=== PATIENT | female | born 1995 | race Caucasian/White ===

== ENCOUNTER 2017-11-01 00:36 | Inpatient (IN) | payer OTHER ==
[2017-11-01] MEDS ORDERED: Methylergonovine 0.2 MG/1 ML Amp IM PRN (00:52)
[2017-11-01] MEDS ORDERED: Tranexamic Acid 1,000 MG in Sodium Chloride 0.9% 100 ML IV PRN (00:52)
[2017-11-01] MEDS ORDERED: Nalbuphine 10 MG/1 ML Vial IVPUSH PRN (00:52)
[2017-11-01] MEDS ORDERED: Water For Irrigation,Sterile 1,000 ML Container IRR PRN (00:52)
[2017-11-01] MEDS ORDERED: Sodium Chloride 0.9% 10 ML Syringe FLUSH PRN (00:52)
[2017-11-01] MEDS ORDERED: Misoprostol 200 MCG Tab PO PRN (00:52)
[2017-11-01] MEDS ORDERED: Butorphanol 1 MG/ML SDV IVPUSH PRN (00:52)
[2017-11-01] MEDS ORDERED: Carboprost Tromethamine 250 MCG/1 ML Amp IM PRN (00:52)
[2017-11-01] MEDS ORDERED: Lidocaine 1% 50 ML MDV INJECT PRN (00:52)
[2017-11-01] MEDS ORDERED: Sodium Chloride 0.9% 2.5 ML Syringe FLUSH PRN (00:52)
[2017-11-01] MEDS ORDERED: Misoprostol 25 MCG (1/4 of 100 MCG) Tab VAG PRN (00:55)
[2017-11-01] MEDS ORDERED: Terbutaline 1 MG/ML SDV SUBCUT PRN (00:55)
[2017-11-01] MEDS ORDERED: Oxytocin/0.9 % Sodium Chloride 30 UNIT/500 ML BAG IV SCH ×2 (01:00)
[2017-11-01] MEDS: Misoprostol 25 MCG (1/4 of 100 MCG) Tab VAG PRN ×2 (01:42→09:03)
[2017-11-01] MEDS: Misoprostol 50 MCG (1/2 of 100 MCG) Tab PO SCH ×2 (01:43→09:02)
--- NOTE | 2017-11-01 07:54 | PCM.LDHP ---
L&D History of Present Illness - General Date of Service: 11/01/17 Admit Problem/Dx: Patient Status Order with Admit Dx/Problem 11/01/17 00:53 Patient Status [ADT] Routine Admission Diagnosis/Problem Admission Diagnosis/Problem - planned 11/01/17 07:48 22yo EDC 10/31/2017 40 1/7wks IOL for term, O+, R-equivocal, GBS neg. Source of Information: Patient History Limitations: Reports: No Limitations - History of Present Illness Improves with: Reports: None Worsens with: Reports: None Associated Symptoms: Reports: N - Related Data Allergies/Adverse Reactions: Allergies Allergy/AdvReac Type Severity Reaction Status Date / Time No Known Allergies Allergy Verified 11/01/17 00:48 Home Medications: Home Meds [id number]/Iron Fumarate/FA/DSS [ 19 Tablet] 1 cap PO DAILY 11/01/17 [ History] Past Medical History [employer] History: Reports: - Past Surgical History GI Surgical History: Reports: Appendectomy Other GI Surgeries/Procedures: 2010 Social & Family History - Family History Family Medical History: Noncontributory Oncologic: Reports: Ovarian, Renal - Tobacco Use Smoking Status *Q: Never Smoker Second Hand Smoke Exposure: No - Caffeine Use Caffeine Use: Reports: Coffee, Tea - Alcohol Use Days Per Week of Alcohol Use: 0 - Recreational Drug Use Recreational Drug Use: No Drug Use in Last 12 Months: Yes Recreational Drug Type: Reports: Marijuana/Hashish H&P Review of Systems - Review of Systems: Review Of Systems: See Below General: Reports: No Symptoms HEENT: Reports: No Symptoms Pulmonary: Reports: No Symptoms Cardiovascular: Reports: No Symptoms Gastrointestinal: Reports: No Symptoms Genitourinary: Reports: No Symptoms Musculoskeletal: Reports: No Symptoms Skin: Reports: No Symptoms Psychiatric: Reports: No Symptoms Neurological: Reports: No Symptoms Hematologic/Lymphatic: Reports: No Symptoms Immunologic: Reports: No Symptoms L&D Exam - Exam Exam: See Below - Vital Signs Weight: 109.769 kg - OB Specific Contraction Intensity: Mild Movement: Active Heart Tones: Present Heart Tones per Min: 130 Heart Rate (FHR) Variability: Moderate (6-25 bmp) Presentation: Vertex Estimated Weight: 3200 - Keys Score Keys Score Cervix Position: Anterior Keys Score Consistency: Soft Keys Score Effacement: 51-70% Keys Score Dilation: 1-2 cm Keys Score 's Station: -2 Keys Score Total: 8 - Exam General: Alert, Oriented, Cooperative HEENT: Hearing Intact Lungs: Clear to Auscultation, Normal Respiratory Effort Cardiovascular: Regular Rate, Regular Rhythm, Normal S1, Normal S2 GI/Abdominal Exam: Soft, Non-Tender Rectal Exam: Deferred Genitourinary: Cervical dilitation Back Exam: Normal Inspection, Full Range of Motion Extremities: Normal Inspection, Normal Range of Motion, Non-Tender, No Pedal Edema, Normal Capillary Refill Skin: Warm, Dry, Intact Neurological: Cranial Nerves Intact, Reflexes Equal Bilateral, Strength Equal Bilateral, Normal Gait, Normal Speech, Normal Tone, Sensation Intact Psychiatric: Alert, Normal Affect, Normal Mood - Patient Data Lab Results Last 24 hrs: Laboratory Results - last 24 hr 11/01/17 11/01/17 Range/Units 01:20 01:20 WBC 9.07 (4.0-11.0) K/uL RBC 4.02 L (4.30-5.90) M/uL Hgb 10.5 L (12.0-16.0) g/dL Hct 31.9 L (36.0-46.0) % MCV 79.4 L (80.0-98.0) fL MCH 26.1 L (27.0-32.0) pg MCHC 32.9 (31.0-37.0) g/dL RDW Std Deviation 44.1 (28.0-62.0) fl RDW Coeff of Fina 15 (11.0-15.0) % Plt Count 292 (150-400) K/uL MPV 10.40 (7.40-12.00) fL Nucleated RBC % 0.0 /100WBC Nucleated RBCs # 0 K/uL Blood Type O POSITIVE Antibody Screen NEGATIVE Result Diagrams: 11/01/17 01:20 - Problem List (1) Supervision of normal IUP (intrauterine ) in primigravida SNOMED Code(s): 77203984, 003545769, 023922280, 305513879 ICD Code: Z34.00 - ENCNTR FOR SUPRVSN OF NORMAL FIRST , UNSP TRIMESTER Status: Acute Priority: High Current Visit: Yes Qualifiers: Trimester: third trimester Qualified Code(s): Z34.03 - Encounter for supervision of normal first , third trimester Problem List Initiated/Reviewed/Updated: Yes Orders Last 24hrs: Active Orders 24 hr Category Date Time Status Patient Status [ADT] Routine ADT 11/01/17 00:53 Active Bedrest Bathroom Privileges [RC] ASDIRECTED Care 11/01/17 00:56 Active Communication Order [RC] ASDIRECTED Care 11/01/17 00:56 Active Communication Order [RC] ASDIRECTED Care 11/01/17 00:56 Active Communication Order [RC] ASDIRECTED Care 11/01/17 00:56 Active Heart Tones [RC] CONTINUOUS Care 11/01/17 00:53 Active Non Stress Test [RC] PER UNIT ROUTINE Care 11/01/17 00:53 Active May Shower [RC] ASDIRECTED Care 11/01/17 00:53 Active Notify Provider [RC] PRN Care 11/01/17 00:53 Active Notify Provider [RC] PRN Care 11/01/17 00:56 Active Notify Provider [RC] PRN Care 11/01/17 00:56 Active Notify Provider [RC] STAT Care 11/01/17 00:56 Active Oxygen Therapy [RC] ASDIRECTED Care 11/01/17 00:56 Active Up ad Karin [RC] ASDIRECTED Care 11/01/17 00:53 Active Vaginal Exam [RC] PRN Care 11/01/17 00:53 Active Vital Signs [RC] PER UNIT ROUTINE Care 11/01/17 00:53 Active Regular Diet [DIET] Diet 11/01/17 Breakfast Active Butorphanol [Stadol] Med 11/01/17 00:52 Active 1 mg IVPUSH Q1H PRN Carboprost Tromethamine [Hemabate DS] Med 11/01/17 00:52 Active 250 mcg IM ASDIRECTED PRN Lactated Ringers [Ringers, Lactated] 1,000 ml Med 11/01/17 01:00 Active IV ASDIRECTED Lidocaine 1% [Xylocaine 1%] Med 11/01/17 00:52 Active 50 ml INJECT ONETIME PRN Methylergonovine [Methergine] Med 11/01/17 00:52 Active 0.2 mg IM ASDIRECTED PRN Nalbuphine [Nubain] Med 11/01/17 00:52 Active 10 mg IVPUSH Q1H PRN Oxytocin/0.9 % Sodium Chloride [Oxytocin 30 Unit/500 ML Med 11/01/17 01:00 Active -NS] 30 unit in 500 ml IV TITRATE Oxytocin/0.9 % Sodium Chloride [Oxytocin 30 Unit/500 ML Med 11/01/17 01:00 Active -NS] 30 unit in 500 ml IV TITRATE Sodium Chloride 0.9% [Saline Flush] Med 11/01/17 00:52 Active 10 ml FLUSH ASDIRECTED PRN Sodium Chloride 0.9% [Saline Flush] Med 11/01/17 00:52 Active 2.5 ml FLUSH ASDIRECTED PRN Terbutaline [Brethine] Med 11/01/17 00:55 Active 0.25 mg SUBCUT ASDIRECTED PRN Tranexamic Acid [Cyklokapron] 1,000 mg Med 11/01/17 00:52 Active Sodium Chloride 0.9% [Normal Saline] 100 ml IV ONETIME Water For Irrigation,Sterile [Sterile Water for Med 11/01/17 00:52 Active Irrigation] 1,000 ml IRR ASDIRECTED PRN miSOPROStol [Cytotec] Med 11/01/17 00:52 Active 200 mcg PO ONETIME PRN miSOPROStol [Cytotec] Med 11/01/17 01:30 Active 25 mcg PO Q4H miSOPROStol [Cytotec] Med 11/01/17 00:55 Active 25 mcg VAG ONETIME PRN miSOPROStol [Cytotec] Med 11/01/17 00:55 Active 25 mcg VAG Q4H PRN Scalp Electrode [WOMSER] Per Unit Routine Oth 11/01/17 00:53 Ordered Medication Administration Instruction [OM.PC] Q3H Oth 11/01/17 01:00 Ordered Peripheral IV Insertion Adult [OM.PC] Routine Oth 11/01/17 00:53 Ordered Resuscitation Status Routine Resus Stat 11/01/17 00:52 Ordered Medication Orders Butorphanol Tartrate (Stadol) 1 mg IVPUSH Q1H PRN PRN Reason: Pain Carboprost Tromethamine (Hemabate Ds) 250 mcg IM ASDIRECTED PRN PRN Reason: Post Hemorrhage Lactated Ringer's (Ringers, Lactated) 1,000 mls @ 150 mls/hr IV ASDIRECTED NANY Oxytocin/Sodium Chloride (Oxytocin 30 Unit/500 Ml-Ns) 30 unit in 500 mls @ 500 mls/hr IV TITRATE [facility] Tranexamic Acid 1,000 mg/ (Sodium Chloride) 110 mls @ 660 mls/hr IV ONETIME PRN PRN Reason: Bleeding Oxytocin/Sodium Chloride (Oxytocin 30 Unit/500 Ml-Ns) 30 unit in 500 mls @ 2 mls/hr IV TITRATE [facility]; Protocol Lidocaine HCl (Xylocaine 1%) 50 ml INJECT ONETIME PRN PRN Reason: Laceration repair Methylergonovine Maleate (Methergine) 0.2 mg IM ASDIRECTED PRN PRN Reason: Post Hemorrhage Misoprostol (Cytotec) 200 mcg PO ONETIME PRN PRN Reason: Post Hemorrhage Misoprostol (Cytotec) 25 mcg VAG ONETIME PRN PRN Reason: Cervical Ripening Misoprostol (Cytotec) 25 mcg VAG Q4H PRN PRN Reason: Cervical Ripening Last Admin: 11/01/17 01:42 Dose: 25 mcg Misoprostol (Cytotec) 25 mcg PO Q4H NANY Last Admin: 11/01/17 01:43 Dose: 25 mcg Nalbuphine HCl (Nubain) 10 mg IVPUSH Q1H PRN PRN Reason: Pain (severe 7-10) Sodium Chloride (Saline Flush) 10 ml FLUSH ASDIRECTED PRN PRN Reason: Keep Vein Open Sodium Chloride (Saline Flush) 2.5 ml FLUSH ASDIRECTED PRN PRN Reason: Keep Vein Open Sterile Water (Sterile Water For Irrigation) 1,000 ml IRR ASDIRECTED PRN PRN Reason: delivery Terbutaline Sulfate (Brethine) 0.25 mg SUBCUT ASDIRECTED PRN PRN Reason: Tacysystole Assessment/Plan Comment:: IOL A: 22yo EDC 10/31/2017 40 1/7wks IOL for term, O+, R-equivocal, GBS neg. P: Admit, cytotec to pitocin, GBS neg, pain med-epidural prn, anticipate , Dr Tijerina updated
[2017-11-01] MEDS: Lactated Ringers 1,000 ML IV SCH ×3 (09:15→18:27)
--- NOTE | 2017-11-01 13:04 | PCM.PREANE ---
Preanesthetic Assessment - Anesthesia/Transfusion/Family Hx Anesthesia History: No Prior Anesthesia Family History of Anesthesia Reaction: No Transfusion History: No Prior Transfusion(s) - Review of Systems General: No Symptoms Pulmonary: No Symptoms Cardiovascular: No Symptoms Gastrointestinal: No Symptoms Neurological: No Symptoms Other: Reports: None - Physical Assessment Height: 5 ft 3 in Weight: 109.769 kg ASA Class: 2 Mental Status: Alert & Oriented x3 Airway Class: Mallampati = 2 Dentition: Reports: Normal Dentition Thyro-Mental Finger Breadths: 3 Mouth Opening Finger Breadths: 3 ROM/Head Extension: Full Lungs: Clear to Auscultation, Normal Respiratory Effort Cardiovascular: Regular Rate, Regular Rhythm - Lab Values: Laboratory Last Values WBC 9.07 K/uL (4.0-11.0) 11/01/17 01:20 RBC 4.02 M/uL (4.30-5.90) L 11/01/17 01:20 Hgb 10.5 g/dL (12.0-16.0) L 11/01/17 01:20 Hct 31.9 % (36.0-46.0) L 11/01/17 01:20 MCV 79.4 fL (80.0-98.0) L 11/01/17 01:20 MCH 26.1 pg (27.0-32.0) L 11/01/17 01:20 MCHC 32.9 g/dL (31.0-37.0) 11/01/17 01:20 RDW Std Deviation 44.1 fl (28.0-62.0) 11/01/17 01:20 RDW Coeff of Fina 15 % (11.0-15.0) 11/01/17 01:20 Plt Count 292 K/uL (150-400) 11/01/17 01:20 MPV 10.40 fL (7.40-12.00) 11/01/17 01:20 Nucleated RBC % 0.0 /100WBC 11/01/17 01:20 Nucleated RBCs # 0 K/uL 11/01/17 01:20 Blood Type O POSITIVE 11/01/17 01:20 Antibody Screen NEGATIVE 11/01/17 01:20 - Allergies Allergies/Adverse Reactions: Allergies Allergy/AdvReac Type Severity Reaction Status Date / Time No Known Allergies Allergy Verified 11/01/17 00:48 - Acknowledgements Anesthesia Type Planned: Epidural Pt an Appropriate Candidate for the Planned Anesthesia: Yes Alternatives and Risks of Anesthesia Discussed w Pt/Guardian: Yes Pt/Guardian Understands and Agrees with Anesthesia Plan: Yes PreAnesthesia Questionnaire HEENT History: Reports: None Cardiovascular History: Reports: None Respiratory History: Reports: None Gastrointestinal History: Reports: GERD Genitourinary History: Reports: None SOAKER MEAT History: Reports: : 1 Para: 0 LMP (Approximate): Musculoskeletal History: Reports: None Neurological History: Reports: None Psychiatric History: Reports: None Endocrine/Metabolic History: Reports: Obesity/BMI 30+ Hematologic History: Reports: Anemia Immunologic History: Reports: None Oncologic (Cancer) History: Reports: None Dermatologic History: Reports: None - Past Surgical History GI Surgical History: Reports: Appendectomy Other GI Surgeries/Procedures: 2010 - SUBSTANCE USE Smoking Status *Q: Never Smoker Second Hand Smoke Exposure: No Days Per Week of Alcohol Use: 0 Recreational Drug Use History: No Recreational Drug Type: Reports: Marijuana/Hashish - HOME MEDS Home Medications: Home Meds [id number]/Iron Fumarate/FA/DSS [ 19 Tablet] 1 cap PO DAILY 11/01/17 [ History] - CURRENT (IN HOUSE) MEDS Current Meds: Current Medications Butorphanol Tartrate (Stadol) 1 mg IVPUSH Q1H PRN PRN Reason: Pain Carboprost Tromethamine (Hemabate Ds) 250 mcg IM ASDIRECTED PRN PRN Reason: Post Hemorrhage Lactated Ringer's (Ringers, Lactated) 1,000 mls @ 150 mls/hr IV ASDIRECTED NANY Last Admin: 11/01/17 09:15 Dose: 150 mls/hr Oxytocin/Sodium Chloride (Oxytocin 30 Unit/500 Ml-Ns) 30 unit in 500 mls @ 500 mls/hr IV TITRATE NANY Tranexamic Acid 1,000 mg/ (Sodium Chloride) 110 mls @ 660 mls/hr IV ONETIME PRN PRN Reason: Bleeding Oxytocin/Sodium Chloride (Oxytocin 30 Unit/500 Ml-Ns) 30 unit in 500 mls @ 2 mls/hr IV TITRATE NANY; Protocol Lidocaine HCl (Xylocaine 1%) 50 ml INJECT ONETIME PRN PRN Reason: Laceration repair Methylergonovine Maleate (Methergine) 0.2 mg IM ASDIRECTED PRN PRN Reason: Post Hemorrhage Misoprostol (Cytotec) 200 mcg PO ONETIME PRN PRN Reason: Post Hemorrhage Misoprostol (Cytotec) 25 mcg VAG ONETIME PRN PRN Reason: Cervical Ripening Misoprostol (Cytotec) 25 mcg VAG Q4H PRN PRN Reason: Cervical Ripening Last Admin: 11/01/17 09:03 Dose: 25 mcg Misoprostol (Cytotec) 25 mcg PO Q4H NANY Last Admin: 11/01/17 09:02 Dose: 25 mcg Nalbuphine HCl (Nubain) 10 mg IVPUSH Q1H PRN PRN Reason: Pain (severe 7-10) Last Admin: 11/01/17 11:13 Dose: 10 mg Sodium Chloride (Saline Flush) 10 ml FLUSH ASDIRECTED PRN PRN Reason: Keep Vein Open Sodium Chloride (Saline Flush) 2.5 ml FLUSH ASDIRECTED PRN PRN Reason: Keep Vein Open Sterile Water (Sterile Water For Irrigation) 1,000 ml IRR ASDIRECTED PRN PRN Reason: delivery Terbutaline Sulfate (Brethine) 0.25 mg SUBCUT ASDIRECTED PRN PRN Reason: Tacysystole
[2017-11-01] MEDS ORDERED: Bupivacaine 0.5% 10 ML SDV ONE (20:52)
[2017-11-01] MEDS ORDERED: Acetaminophen 500 MG Tab PO PRN ×2 (23:01)
[2017-11-01] MEDS ORDERED: oxyCODONE 5 MG Tab PO PRN (23:01)
[2017-11-01] MEDS ORDERED: Docusate Sodium 100 MG Cap PO PRN (23:01)
[2017-11-01] MEDS ORDERED: Bisacodyl 10 MG Supp RECTAL PRN (23:01)
[2017-11-01] MEDS ORDERED: Ibuprofen 400 MG Tab PO PRN (23:01)
[2017-11-01] MEDS ORDERED: Witch Hazel Medicated Pads 40/Jar TOP PRN (23:01)
[2017-11-01] MEDS ORDERED: Lanolin 100% Cream 7 GM Tube TOP PRN (23:01)
[2017-11-01] MEDS ORDERED: Benzocaine/Menthol 20%-0.5% Spray 78 GM Cannister TOP PRN (23:01)
--- NOTE | 2017-11-01 23:06 | PCM.DEL ---
L & D Note - General Info Date of Service: 11/01/17 Mother's Due Date: 10/31/17 - Delivery Note Labor: Induced by Oxytocin Cervical Ripening Method: Misoprostil Delivery Outcome: Livebirth Delivery Method: Spontaneous Vaginal Delivery-Single Infant Delivery Mode: Spontaneous Presentation: Vertex Nuchal Cord: None Anesthesia Type: None Amniotic Fluid Description: Clear Episiotomy Type: None Laceration: 1st Degree, Perineal Suture type: Vicryl Suture size: 3-0 Placenta: Intact, Spontaneous Cord: 3 Vessels Estimated Blood Loss: 150 Resuscitation Needed: No Score 1 min: 9 Score 5 min: 8 Second Stage Interventions: Reports: Pushing, Pulls Own Legs Back Induction Criteria - Keys Score Keys Score Dilation: 1-2 cm Keys Score Effacement: 40-50% Keys Score 's Station: -2 Keys Score Consistency: Medium Keys Score Cervix Position: Posterior Keys Score Total: 4 Keys Score Presenting Part: Reports: Cephalic - Induction Gestational Age >/= 39 wks: Yes Estimated Pelvis: Reports: Adequate Reassuring Monitoring Strip: Yes Absence of Tachy Systole: Yes - General Info Date of Service: 11/01/17 Admission Dx/Problem (Free Text): Patient Status Order with Admit Dx/Problem 11/01/17 00:53 Patient Status [ADT] Routine Admission Diagnosis/Problem Admission Diagnosis/Problem - planned 11/01/17 07:48 22yo EDC 10/31/2017 40 1/7wks IOL for term, O+, R-equivocal, GBS neg. Functional Status: Reports: Pain Controlled - Review of Systems General: Reports: No Symptoms HEENT: Reports: No Symptoms Pulmonary: Reports: No Symptoms Cardiovascular: Reports: No Symptoms Gastrointestinal: Reports: No Symptoms Genitourinary: Reports: No Symptoms Musculoskeletal: Reports: No Symptoms Skin: Reports: No Symptoms Neurological: Reports: No Symptoms Psychiatric: Reports: No Symptoms - Patient Data Weight - Most Recent: 109.769 kg Lab Results Last 24 Hours: Laboratory Results - last 24 hr 11/01/17 11/01/17 Range/Units 01:20 01:20 WBC 9.07 (4.0-11.0) K/uL RBC 4.02 L (4.30-5.90) M/uL Hgb 10.5 L (12.0-16.0) g/dL Hct 31.9 L (36.0-46.0) % MCV 79.4 L (80.0-98.0) fL MCH 26.1 L (27.0-32.0) pg MCHC 32.9 (31.0-37.0) g/dL RDW Std Deviation 44.1 (28.0-62.0) fl RDW Coeff of Fina 15 (11.0-15.0) % Plt Count 292 (150-400) K/uL MPV 10.40 (7.40-12.00) fL Nucleated RBC % 0.0 /100WBC Nucleated RBCs # 0 K/uL Blood Type O POSITIVE Antibody Screen NEGATIVE Med Orders - Current: Current Medications Discontinued Medications Bupivacaine HCl (Sensorcaine-Mpf 0.5%) Confirm Administered Dose 10 ml .ROUTE .STK-MED ONE Stop: 11/01/17 20:53 Butorphanol Tartrate (Stadol) 1 mg IVPUSH Q1H PRN PRN Reason: Pain Carboprost Tromethamine (Hemabate Ds) 250 mcg IM ASDIRECTED PRN PRN Reason: Post Hemorrhage Lactated Ringer's (Ringers, Lactated) 1,000 mls @ 150 mls/hr IV ASDIRECTED NANY Last Admin: 11/01/17 18:27 Dose: 150 mls/hr Oxytocin/Sodium Chloride (Oxytocin 30 Unit/500 Ml-Ns) 30 unit in 500 mls @ 500 mls/hr IV TITRATE NANY Tranexamic Acid 1,000 mg/ (Sodium Chloride) 110 mls @ 660 mls/hr IV ONETIME PRN PRN Reason: Bleeding Oxytocin/Sodium Chloride (Oxytocin 30 Unit/500 Ml-Ns) 30 unit in 500 mls @ 2 mls/hr IV TITRATE NANY; Protocol Last Titration: 11/01/17 19:23 Dose: 12 munits/min, 12 mls/hr Fentanyl/Bupivacaine HCl (Nxczztio-Gabih-Gk 2 Mcg/Ml-0.125%) Confirm Administered Dose 100 mls @ as directed EP .STK-MED ONE Stop: 11/01/17 13:06 Fentanyl/Bupivacaine HCl (Mhgiilwi-Qydna-Yl 2 Mcg/Ml-0.125%) Confirm Administered Dose 100 mls @ as directed EP .STK-MED ONE Stop: 11/01/17 20:57 Lidocaine HCl (Xylocaine 1%) 50 ml INJECT ONETIME PRN PRN Reason: Laceration repair Methylergonovine Maleate (Methergine) 0.2 mg IM ASDIRECTED PRN PRN Reason: Post Hemorrhage Misoprostol (Cytotec) 200 mcg PO ONETIME PRN PRN Reason: Post Hemorrhage Misoprostol (Cytotec) 25 mcg VAG ONETIME PRN PRN Reason: Cervical Ripening Misoprostol (Cytotec) 25 mcg VAG Q4H PRN PRN Reason: Cervical Ripening Last Admin: 11/01/17 09:03 Dose: 25 mcg Misoprostol (Cytotec) 25 mcg PO Q4H NANY Last Admin: 11/01/17 09:02 Dose: 25 mcg Nalbuphine HCl (Nubain) 10 mg IVPUSH Q1H PRN PRN Reason: Pain (severe 7-10) Last Admin: 11/01/17 11:13 Dose: 10 mg Sodium Chloride (Saline Flush) 10 ml FLUSH ASDIRECTED PRN PRN Reason: Keep Vein Open Sodium Chloride (Saline Flush) 2.5 ml FLUSH ASDIRECTED PRN PRN Reason: Keep Vein Open Sterile Water (Sterile Water For Irrigation) 1,000 ml IRR ASDIRECTED PRN PRN Reason: delivery Terbutaline Sulfate (Brethine) 0.25 mg SUBCUT ASDIRECTED PRN PRN Reason: Tacysystole - Exam General: Alert, Oriented, Cooperative, No Acute Distress Lungs: Normal Respiratory Effort GI/Abdominal Exam: Soft, Non-Tender (Female) Exam: Normal External Exam, Normal Bimanual Exam, Vaginal Bleeding Back Exam: Normal Inspection Extremities: Normal Inspection, Normal Range of Motion, Non-Tender, No Pedal Edema, Normal Capillary Refill Skin: Warm, Dry, Intact Wound/Incisions: Healing Well Neurological: No New Focal Deficit, Normal Speech, Normal Tone Psy/Mental Status: Alert, Normal Affect, Normal Mood - Problem List & Annotations (1) Supervision of normal IUP (intrauterine ) in primigravida SNOMED Code(s): 23145469, 266354558, 709324067, 537063553 Code(s): Z34.00 - ENCNTR FOR SUPRVSN OF NORMAL FIRST , UNSP TRIMESTER Status: Acute Priority: High Current Visit: Yes Qualifiers: Trimester: third trimester Qualified Code(s): Z34.03 - Encounter for supervision of normal first , third trimester (2) (normal spontaneous vaginal delivery) SNOMED Code(s): 94747352 Code(s): O80 - ENCOUNTER FOR FULL-TERM UNCOMPLICATED DELIVERY Status: Acute Priority: High Current Visit: Yes - Problem List Review Problem List Initiated/Reviewed/Updated: Yes - My Orders Last 24 Hours: My Active Orders 11/01/17 23:01 May Shower [RC] ASDIRECTED Up ad Karin [RC] ASDIRECTED Vital Signs [RC] PER UNIT ROUTINE Acetaminophen [Tylenol Extra Strength] 1,000 mg PO Q4H PRN Acetaminophen [Tylenol Extra Strength] 500 mg PO Q4H PRN Benzocaine/Menthol [Dermoplast Pain Relief 20%-0.5% [place]] 78 gm TOP ASDIRECTED PRN Bisacodyl [Dulcolax] 10 mg RECTAL ONETIME PRN Docusate Sodium [Colace] 100 mg PO BID PRN Ibuprofen [Motrin] 400 mg PO Q4H PRN Ibuprofen [Motrin] 800 mg PO Q6H PRN Lanolin [Lansinoh HPA] See Dose Instructions TOP ASDIRECTED PRN [place] [Tucks] 1 pad TOP ASDIRECTED PRN oxyCODONE 5 mg PO Q2H PRN Assess Lochia [WOMSER] Per Unit Routine Assess Uterine Involution [WOMSER] Per Unit Routine Peripheral IV Discontinue [OM.PC] Routine Resuscitation Status Routine 11/01/17 23:02 Patient Status [ADT] Routine 11/02/17 Breakfast Regular Diet [DIET] - Plan Plan:: IOL A: 22yo EDC 10/31/2017 40 1/7wks IOL for term, O+, R-equivocal, GBS neg. P: Admit, cytotec to pitocin, GBS neg, pain med-epidural prn, anticipate , Dr Tijerina updated Delivery A: of viable male, APGARS 8/9, WT : 8lb 2oz, 1st deg lac w/repair, EBL 150cc. Mother and baby bonding well in recovery. P: Routine pp plan of care
[2017-11-02] MEDS: Misoprostol 50 MCG (1/2 of 100 MCG) Tab PO SCH (03:24)
[2017-11-02] MEDS: Ibuprofen 800 MG Tab PO PRN ×2 (09:08→18:05)
--- NOTE | 2017-11-02 09:37 | PCM48HPAN ---
Post Anesthesia Note - EVALUATION WITHIN 48HRS OF ANESTHETIC Vital Signs in Normal Range: Yes Patient Participated in Evaluation: Yes Respiratory Function Stable: Yes Airway Patent: Yes Cardiovascular Function Stable: Yes Hydration Status Stable: Yes Pain Control Satisfactory: Yes Nausea and Vomiting Control Satisfactory: Yes Mental Status Recovered: Yes Resp Rate: 16
--- NOTE | 2017-11-02 10:01 | PCM.PNPP ---
- General Info Date of Service: 11/02/17 Admission Dx/Problem (Free Text): Patient Status Order with Admit Dx/Problem 11/01/17 00:53 Patient Status [ADT] Routine Admission Diagnosis/Problem Admission Diagnosis/Problem - planned 11/01/17 07:48 22yo EDC 10/31/2017 40 1/7wks IOL for term, O+, R-equivocal, GBS neg. Functional Status: Reports: Pain Controlled, Tolerating Diet, Ambulating, Urinating - Review of Systems General: Reports: No Symptoms HEENT: Reports: No Symptoms Pulmonary: Reports: No Symptoms Cardiovascular: Reports: No Symptoms Gastrointestinal: Reports: No Symptoms Genitourinary: Reports: No Symptoms Musculoskeletal: Reports: No Symptoms Skin: Reports: No Symptoms Neurological: Reports: No Symptoms Psychiatric: Reports: No Symptoms - General Info Date of Service: 11/02/17 - Patient Data Vital Signs - Most Recent: Last Vital Signs Temp Pulse 85 11/02/17 04:35 Resp 16 11/02/17 09:37 BP 120/65 11/02/17 04:35 Pulse Ox 98 11/02/17 04:35 Weight - Most Recent: 109.769 kg Med Orders - Current: Current Medications Acetaminophen (Tylenol Extra Strength) 500 mg PO Q4H PRN PRN Reason: Pain Acetaminophen (Tylenol Extra Strength) 1,000 mg PO Q4H PRN PRN Reason: Pain Benzocaine/Menthol (Dermoplast Pain Relief 20%-0.5% [place]) 78 gm TOP ASDIRECTED PRN PRN Reason: Perineal Comfort Measure Last Admin: 11/02/17 01:10 Dose: 1 applic Bisacodyl (Dulcolax) 10 mg RECTAL ONETIME PRN PRN Reason: Constipation Docusate Sodium (Colace) 100 mg PO BID PRN PRN Reason: Constipation Emollient Ointment (Lansinoh Hpa) 0 gm TOP ASDIRECTED PRN PRN Reason: Sore Nipples Last Admin: 11/02/17 01:09 Dose: 1 applic Ibuprofen (Motrin) 400 mg PO Q4H PRN PRN Reason: Pain Ibuprofen (Motrin) 800 mg PO Q6H PRN PRN Reason: Pain Last Admin: 11/02/17 09:08 Dose: 800 mg Oxycodone HCl (Oxycodone) 5 mg PO Q2H PRN PRN Reason: Pain Witch Cielo (Tucks) 1 pad TOP ASDIRECTED PRN PRN Reason: comfort care Last Admin: 11/02/17 01:10 Dose: 1 applic Discontinued Medications Bupivacaine HCl (Sensorcaine-Mpf 0.5%) Confirm Administered Dose 10 ml .ROUTE .STK-MED ONE Stop: 11/01/17 20:53 Last Admin: 11/02/17 03:23 Dose: Not Given Butorphanol Tartrate (Stadol) 1 mg IVPUSH Q1H PRN PRN Reason: Pain Carboprost Tromethamine (Hemabate Ds) 250 mcg IM ASDIRECTED PRN PRN Reason: Post Hemorrhage Lactated Ringer's (Ringers, Lactated) 1,000 mls @ 150 mls/hr IV ASDIRECTED NANY Last Admin: 11/01/17 18:27 Dose: 150 mls/hr Oxytocin/Sodium Chloride (Oxytocin 30 Unit/500 Ml-Ns) 30 unit in 500 mls @ 500 mls/hr IV TITRATE NANY Tranexamic Acid 1,000 mg/ (Sodium Chloride) 110 mls @ 660 mls/hr IV ONETIME PRN PRN Reason: Bleeding Oxytocin/Sodium Chloride (Oxytocin 30 Unit/500 Ml-Ns) 30 unit in 500 mls @ 2 mls/hr IV TITRATE NANY; Protocol Last Titration: 11/01/17 19:23 Dose: 12 munits/min, 12 mls/hr Methylergonovine Maleate (Methergine) 0.2 mg IM ASDIRECTED PRN PRN Reason: Post Hemorrhage Misoprostol (Cytotec) 200 mcg PO ONETIME PRN PRN Reason: Post Hemorrhage Misoprostol (Cytotec) 25 mcg VAG ONETIME PRN PRN Reason: Cervical Ripening Misoprostol (Cytotec) 25 mcg VAG Q4H PRN PRN Reason: Cervical Ripening Last Admin: 11/01/17 09:03 Dose: 25 mcg Misoprostol (Cytotec) 25 mcg PO Q4H NANY Last Admin: 11/02/17 03:24 Dose: Not Given Nalbuphine HCl (Nubain) 10 mg IVPUSH Q1H PRN PRN Reason: Pain (severe 7-10) Last Admin: 09/21/18 11:13 Dose: 10 mg Sodium Chloride (Saline Flush) 10 ml FLUSH ASDIRECTED PRN PRN Reason: Keep Vein Open Sodium Chloride (Saline Flush) 2.5 ml FLUSH ASDIRECTED PRN PRN Reason: Keep Vein Open Sterile Water (Sterile Water For Irrigation) 1,000 ml IRR ASDIRECTED PRN PRN Reason: delivery Terbutaline Sulfate (Brethine) 0.25 mg SUBCUT ASDIRECTED PRN PRN Reason: Tacysystole - Infant Interaction Disposition, : [place] in Room with Family Infant Interaction: Holding Infant Infant Feeding: Breastfed ; Nursed Well, Continues to Breastfeed Support Person: Mother - Recovery Exam Fundal Tone: Firm Fundal Level: 1 Fingerbreadths Below Umbilicus Fundal Placement: Midline Lochia Amount: Small Lochia Color: Rubra/Red Perineum Description: Intact, Minimal Bruising/Swelling Other Perinuem Description: 1 degree laceration Episiotomy/Laceration: Approximated Bladder Status: Voiding - Exam General: Alert, Oriented, Cooperative, No Acute Distress Lungs: Normal Respiratory Effort Extremities: Normal Inspection, Normal Range of Motion, Non-Tender, No Pedal Edema, Normal Capillary Refill Skin: Warm, Dry, Intact Wound/Incisions: Healing Well Neurological: No New Focal Deficit, Normal Gait, Normal Speech, Normal Tone, Strength Equal Bilateral Psy/Mental Status: Alert, Normal Affect, Normal Mood - Problem List & Annotations (1) Supervision of normal IUP (intrauterine ) in primigravida SNOMED Code(s): 72992007, 554883828, 313173646, 602752736 Code(s): Z34.00 - ENCNTR FOR SUPRVSN OF NORMAL FIRST , UNSP TRIMESTER Status: Acute Priority: High Current Visit: Yes Qualifiers: Trimester: third trimester Qualified Code(s): Z34.03 - Encounter for supervision of normal first , third trimester (2) (normal spontaneous vaginal delivery) SNOMED Code(s): 96458120 Code(s): O80 - ENCOUNTER FOR FULL-TERM UNCOMPLICATED DELIVERY Status: Acute Priority: High Current Visit: Yes - Problem List Review Problem List Initiated/Reviewed/Updated: Yes - My Orders Last 24 Hours: My Active Orders 11/01/17 23:01 May Shower [RC] ASDIRECTED Up ad Karin [RC] ASDIRECTED Vital Signs [RC] PER UNIT ROUTINE Acetaminophen [Tylenol Extra Strength] 1,000 mg PO Q4H PRN Acetaminophen [Tylenol Extra Strength] 500 mg PO Q4H PRN Benzocaine/Menthol [Dermoplast Pain Relief 20%-0.5% [place]] 78 gm TOP ASDIRECTED PRN Bisacodyl [Dulcolax] 10 mg RECTAL ONETIME PRN Docusate Sodium [Colace] 100 mg PO BID PRN Ibuprofen [Motrin] 400 mg PO Q4H PRN Ibuprofen [Motrin] 800 mg PO Q6H PRN Lanolin [Lansinoh HPA] See Dose Instructions TOP ASDIRECTED PRN Witch Cielo [Tucks] 1 pad TOP ASDIRECTED PRN oxyCODONE 5 mg PO Q2H PRN Assess Lochia [WOMSER] Per Unit Routine Assess Uterine Involution [WOMSER] Per Unit Routine Peripheral IV Discontinue [OM.PC] Routine Resuscitation Status Routine 11/01/17 23:02 Patient Status [ADT] Routine 11/02/17 Breakfast Regular Diet [DIET] - Plan Plan:: IOL A: 22yo EDC 10/31/2017 40 1/7wks IOL for term, O+, R-equivocal, GBS neg. P: Admit, cytotec to pitocin, GBS neg, pain med-epidural prn, anticipate , Dr Tijerina updated Delivery A: of viable male, APGARS 8/9, WT : 8lb 2oz, 1st deg lac w/repair, EBL 150cc. Mother and baby bonding well in recovery. P: Routine pp plan of care PPD#1 A: VSS, AF, FF -2BU, lochia small, Pain in perineum minimal. Stable and breast feeding very well. P: continue pp plan of care. May D/C in the am if continued stable
[2017-11-03] MEDS: Ibuprofen 800 MG Tab PO PRN ×2 (05:12→17:21)
--- NOTE | 2017-11-03 10:47 | PCM.DCSUM1 ---
Discharge Summary - Hospital Course Free Text/Narrative:: Discharge home with . Follow up in 6 weeks for post . Diagnosis: Stroke: No - Discharge Data Discharge Date: 11/03/17 Discharge Disposition: Home, Self-Care 01 Condition: Good - Discharge Diagnosis/Problem(s) (1) Supervision of normal IUP (intrauterine ) in primigravida SNOMED Code(s): 55475590, 150654112, 255147072, 261854137 ICD Code: Z34.00 - ENCNTR FOR SUPRVSN OF NORMAL FIRST , UNSP TRIMESTER Status: Acute Priority: High Current Visit: Yes Qualifiers: Trimester: third trimester Qualified Code(s): Z34.03 - Encounter for supervision of normal first , third trimester (2) (normal spontaneous vaginal delivery) SNOMED Code(s): 89540503 ICD Code: O80 - ENCOUNTER FOR FULL-TERM UNCOMPLICATED DELIVERY Status: Acute Priority: High Current Visit: Yes - Patient Instructions Diet: Usual Diet as Tolerated Activity: As Tolerated, No Strenuous Activities, Rest and Relax Today Driving: May Drive Today Showering/Bathing: May Shower Notify Provider of: Fever, Increased Pain, Swelling and Redness, Nausea and/or Vomiting Other/Special Instructions: Discharge home with infant. Follow up in 6 weeks for post . - Discharge Plan Home Medications: Home Meds IFN845/Iron Fumarate/FA/DSS [ 19 Tablet] 1 cap PO DAILY 11/01/17 [ History] - General Info Date of Service: 11/03/17 Admission Dx/Problem (Free Text: Patient Status Order with Admit Dx/Problem 11/01/17 00:53 Patient Status [ADT] Routine Admission Diagnosis/Problem Admission Diagnosis/Problem - planned 11/01/17 07:48 22yo EDC 10/31/2017 40 1/7wks IOL for term, O+, R-equivocal, GBS neg. Functional Status: Reports: Pain Controlled, Tolerating Diet, Ambulating, Urinating - Review of Systems General: Reports: No Symptoms HEENT: Reports: No Symptoms Pulmonary: Reports: No Symptoms Cardiovascular: Reports: No Symptoms Gastrointestinal: Reports: No Symptoms Genitourinary: Reports: No Symptoms Musculoskeletal: Reports: No Symptoms Skin: Reports: No Symptoms Neurological: Reports: No Symptoms Psychiatric: Reports: No Symptoms - Patient Data Vitals - Most Recent: Last Vital Signs Temp 36.7 C 11/03/17 07:40 Pulse 83 11/03/17 07:40 Resp 16 11/03/17 09:40 BP 114/54 L 11/03/17 07:40 Pulse Ox 97 11/03/17 07:40 Weight - Most Recent: 109.769 kg Med Orders - Current: Current Medications Acetaminophen (Tylenol Extra Strength) 500 mg PO Q4H PRN PRN Reason: Pain Acetaminophen (Tylenol Extra Strength) 1,000 mg PO Q4H PRN PRN Reason: Pain Benzocaine/Menthol (Dermoplast Pain Relief 20%-0.5% [place]) 78 gm TOP ASDIRECTED PRN PRN Reason: Perineal Comfort Measure Last Admin: 11/02/17 01:10 Dose: 1 applic Bisacodyl (Dulcolax) 10 mg RECTAL ONETIME PRN PRN Reason: Constipation Docusate Sodium (Colace) 100 mg PO BID PRN PRN Reason: Constipation Emollient Ointment (Lansinoh Hpa) 0 gm TOP ASDIRECTED PRN PRN Reason: Sore Nipples Last Admin: 11/02/17 01:09 Dose: 1 applic Ibuprofen (Motrin) 400 mg PO Q4H PRN PRN Reason: Pain Ibuprofen (Motrin) 800 mg PO Q6H PRN PRN Reason: Pain Last Admin: 11/03/17 05:12 Dose: 800 mg Oxycodone HCl (Oxycodone) 5 mg PO Q2H PRN PRN Reason: Pain Last Admin: 11/02/17 14:23 Dose: 5 mg Witch Cielo (Tucks) 1 pad TOP ASDIRECTED PRN PRN Reason: comfort care Last Admin: 11/02/17 01:10 Dose: 1 applic Discontinued Medications Bupivacaine HCl (Sensorcaine-Mpf 0.5%) Confirm Administered Dose 10 ml .ROUTE .STK-MED ONE Stop: 11/01/17 20:53 Last Admin: 11/02/17 03:23 Dose: Not Given Butorphanol Tartrate (Stadol) 1 mg IVPUSH Q1H PRN PRN Reason: Pain Carboprost Tromethamine (Hemabate Ds) 250 mcg IM ASDIRECTED PRN PRN Reason: Post Hemorrhage Lactated Ringer's (Ringers, Lactated) 1,000 mls @ 150 mls/hr IV ASDIRECTED NANY Last Admin: 11/01/17 18:27 Dose: 150 mls/hr Oxytocin/Sodium Chloride (Oxytocin 30 Unit/500 Ml-Ns) 30 unit in 500 mls @ 500 mls/hr IV TITRATE NANY Tranexamic Acid 1,000 mg/ (Sodium Chloride) 110 mls @ 660 mls/hr IV ONETIME PRN PRN Reason: Bleeding Oxytocin/Sodium Chloride (Oxytocin 30 Unit/500 Ml-Ns) 30 unit in 500 mls @ 2 mls/hr IV TITRATE [facility]; Protocol Last Titration: 11/01/17 19:23 Dose: 12 munits/min, 12 mls/hr Methylergonovine Maleate (Methergine) 0.2 mg IM ASDIRECTED PRN PRN Reason: Post Hemorrhage Misoprostol (Cytotec) 200 mcg PO ONETIME PRN PRN Reason: Post Hemorrhage Misoprostol (Cytotec) 25 mcg VAG ONETIME PRN PRN Reason: Cervical Ripening Misoprostol (Cytotec) 25 mcg VAG Q4H PRN PRN Reason: Cervical Ripening Last Admin: 11/01/17 09:03 Dose: 25 mcg Misoprostol (Cytotec) 25 mcg PO Q4H [facility] Last Admin: 11/02/17 03:24 Dose: Not Given Nalbuphine HCl (Nubain) 10 mg IVPUSH Q1H PRN PRN Reason: Pain (severe 7-10) Last Admin: 11/01/17 11:13 Dose: 10 mg Sodium Chloride (Saline Flush) 10 ml FLUSH ASDIRECTED PRN PRN Reason: Keep Vein Open Sodium Chloride (Saline Flush) 2.5 ml FLUSH ASDIRECTED PRN PRN Reason: Keep Vein Open Sterile Water (Sterile Water For Irrigation) 1,000 ml IRR ASDIRECTED PRN PRN Reason: delivery Terbutaline Sulfate (Brethine) 0.25 mg SUBCUT ASDIRECTED PRN PRN Reason: Tacysystole - Exam General: Reports: Alert, Oriented, Cooperative, No Acute Distress Lungs: Reports: Clear to Auscultation, Normal Respiratory Effort Cardiovascular: Reports: Regular Rate, Regular Rhythm, No Murmurs GI/Abdominal Exam: Soft, Non-Tender (Female) Exam: Vaginal Bleeding Rectal (Female) Exam: Deferred Back Exam: Reports: Normal Inspection, Full Range of Motion Extremities: Normal Inspection, Normal Range of Motion, Non-Tender, No Pedal Edema, Normal Capillary Refill Skin: Reports: Warm, Dry, Intact Wound/Incisions: Reports: Healing Well Neurological: Reports: No New Focal Deficit, Normal Speech, Normal Tone, Strength Equal Bilateral Psy/Mental Status: Reports: Alert, Normal Affect, Normal Mood
[2017-11-03] MEDS ORDERED: Measles, Mumps & Rubella Vaccine 0.5 ML SDV SUBCUT ONE (20:37)
[2017-11-03 21:50] VITALS: BP 128/78
== END 2017-11-03 21:24 | disposition home or self-care (01) | DRG 775 ==
LOC: MW.OBCHECK 00:36 → MW.OB 00:41 → MW.OBCHECK 00:53 → MW.OB 00:53 → OBSVTOIN 00:53 → MW.OB 11-02 02:40
PROVIDERS: ADMIT Obstetrics & Gynecology; ATTEND Obstetrics & Gynecology
PROC: 10E0XZZ Delivery of Products of Conception, External Approach (ICD-10-PCS; principal; 2017-11-01)
PROC: 3E0P7VZ Introduction of Hormone into Female Reproductive, Via Natural or Artificial Opening (ICD-10-PCS; 2017-11-01)
PROC: 3E033VJ Introduction of Other Hormone into Peripheral Vein, Percutaneous Approach (ICD-10-PCS; 2017-11-01)
PROC: 0HQ9XZZ Repair Perineum Skin, External Approach (ICD-10-PCS; 2017-11-01)
PROC: 10907ZC Drainage of Amniotic Fluid, Therapeutic from Products of Conception, Via Natural or Artificial Opening (ICD-10-PCS; 2017-11-01)
PROC: 00HU33Z Insertion of Infusion Device into Spinal Canal, Percutaneous Approach (ICD-10-PCS; 2017-11-01)
PROC: 3E0234Z Introduction of Serum, Toxoid and Vaccine into Muscle, Percutaneous Approach (ICD-10-PCS; 2017-11-01)
DX: O70.0 First degree perineal laceration during delivery (principal); Z3A.40 40 weeks gestation of pregnancy; Z37.0 Single live birth; Z23 Encounter for immunization
CPT/HCPCS: 36415; 51702; 59025; 59409; 85027; 86850; 86900; 86901; 90707; A9270-GY; G0010; J2300; J2590; J7120

== ENCOUNTER 2019-06-24 16:07 | Emergency (ER) | payer SELFPAY ==
--- NOTE | 2019-06-24 16:26 | EDM.PDOC ---
ED HPI GENERAL MEDICAL PROBLEM - General Chief Complaint: Chest Pain Stated Complaint: EMS ARRIVAL Time Seen by Provider: 06/24/19 16:16 Source of Information: Reports: Patient History Limitations: Reports: No Limitations - History of Present Illness INITIAL COMMENTS - FREE TEXT/NARRATIVE: This is a 23-year-old female who presents to the emergency room with chest pain and a rash. Patient states that her heart rate was beating rapidly and she started having chest pain. When patient arrived emergency room the chest pain had subsided. Patient has a history of shingles Onset: Today Duration: Minutes:, Intermittent Location: Reports: Chest Quality: Reports: Ache Severity: Moderate Improves with: Reports: None Worsens with: Reports: None Associated Symptoms: Reports: Chest Pain - Related Data Allergies Allergy/AdvReac Type Severity Reaction Status Date / Time No Known Allergies Allergy Verified 06/24/19 16:16 Home Meds: Home Meds Iud 1 dose .XX ASDIRECTED 06/24/19 [History] Past Medical History HEENT History: Reports: None Cardiovascular History: Reports: None Respiratory History: Reports: None Gastrointestinal History: Reports: GERD Genitourinary History: Reports: None DIRECTOR OF PHARMACY History: Reports: Musculoskeletal History: Reports: None Neurological History: Reports: None Psychiatric History: Reports: None Endocrine/Metabolic History: Reports: Obesity/BMI 30+ Hematologic History: Reports: Anemia Immunologic History: Reports: None Oncologic (Cancer) History: Reports: None Dermatologic History: Reports: None - Past Surgical History GI Surgical History: Reports: Appendectomy Other GI Surgeries/Procedures: 2010 Social & Family History - Family History Family Medical History: Noncontributory Oncologic: Reports: Ovarian, Renal - Caffeine Use Caffeine Use: Reports: Coffee, Tea ED ROS GENERAL - Review of Systems Review Of Systems: See Below Constitutional: Reports: No Symptoms HEENT: Reports: No Symptoms Respiratory: Reports: No Symptoms Cardiovascular: Reports: No Symptoms Endocrine: Reports: No Symptoms GI/Abdominal: Reports: No Symptoms : Reports: No Symptoms Musculoskeletal: Reports: No Symptoms Skin: Reports: No Symptoms Neurological: Reports: No Symptoms Hematologic/Lymphatic: Reports: No Symptoms Immunologic: Reports: No Symptoms ED EXAM, GENERAL - Physical Exam Exam: See Below Exam Limited By: No Limitations General Appearance: Alert, WD/WN, Anxious, Mild Distress Eye Exam: Bilateral Eye: Normal Fundi, Normal Inspection, PERRL Ears: Normal External Exam, Normal Canal, Hearing Grossly Normal, Normal TMs Ear Exam: Bilateral Ear: Auricle Normal, Canal Normal, TM normal Nose: Normal Inspection, Normal Mucosa Throat/Mouth: Normal Inspection, Normal Lips, Normal Teeth, Normal Oropharynx, Normal Voice Neck: Normal Inspection, Supple, Non-Tender Respiratory/Chest: No Respiratory Distress, Lungs Clear, No Accessory Muscle Use Cardiovascular: Normal Peripheral Pulses, Regular Rate, Rhythm, No Edema, No JVD , No Murmur GI/Abdominal: Normal Bowel Sounds, Soft, Non-Tender, No Distention, No Abnormal Bruit, No Mass (Female) Exam: Deferred Rectal (Female) Exam: Deferred Back Exam: Normal Inspection, Full Range of Motion Extremities: Normal Inspection, Normal Range of Motion Neurological: Alert, Oriented, CN II-XII Intact, Normal Cognition, Normal Reflexes, No Motor/Sensory Deficits Psychiatric: Normal Affect, Normal Mood Skin Exam: Warm, Dry, Intact, Erythema (Rash on the chest wall), Rash Lymphatic: No Adenopathy Course - Vital Signs Last Recorded V/S: Last Vital Signs Temp 98.9 F 06/24/19 16:12 Pulse 93 06/24/19 17:30 Resp 16 06/24/19 17:30 BP 128/75 06/24/19 17:30 Pulse Ox 97 06/24/19 17:30 - Orders/Labs/Meds Labs: Laboratory Tests 06/24/19 06/24/19 06/24/19 Range/Units 16:36 16:36 16:39 WBC 11.53 H (4.0-11.0) K/uL RBC 4.49 (4.30-5.90) M/uL Hgb 11.6 L (12.0-16.0) g/dL Hct 36.0 (36.0-46.0) % MCV 80.2 (80.0-98.0) fL MCH 25.8 L (27.0-32.0) pg MCHC 32.2 (31.0-37.0) g/dL RDW Std Deviation 45.3 (28.0-62.0) fl RDW Coeff of Fina 16 H (11.0-15.0) % Plt Count 346 (150-400) K/uL MPV 9.90 (7.40-12.00) fL Neut % (Auto) 70.0 (48.0-80.0) % Lymph % (Auto) 25.1 (16.0-40.0) % [place] % (Auto) 4.4 (0.0-15.0) % Eos % (Auto) 0.4 (0.0-7.0) % Baso % (Auto) 0.1 (0.0-1.5) % Neut # (Auto) 8.1 H (1.4-5.7) K/uL Lymph # (Auto) 2.9 H (0.6-2.4) K/uL [place] # (Auto) 0.5 (0.0-0.8) K/uL Eos # (Auto) 0.1 (0.0-0.7) K/uL Baso # (Auto) 0.0 (0.0-0.1) K/uL Nucleated RBC % 0.0 /100WBC Nucleated RBCs # 0 K/uL Sodium 139 (136-145) mmol/L Potassium 3.5 (3.5-5.1) mmol/L Chloride 102 (98-107) mmol/L Carbon Dioxide 25.2 (21.0-32.0) mmol/L BUN 8 (7.0-18.0) mg/dL Creatinine 0.7 (0.6-1.0) mg/dL Est Cr Clr Drug Dosing 108.86 mL/min Estimated GFR (MDRD) > 60.0 ml/min Glucose 110 H (74-106) mg/dL Calcium 8.9 (8.5-10.1) mg/dL Total Bilirubin 0.2 (0.2-1.0) mg/dL AST 21 (15-37) IU/L ALT 23 (14-63) IU/L Alkaline Phosphatase 172 H (46-116) U/L Troponin I < 0.050 (0.000-0.056) ng/mL Total Protein 7.8 (6.4-8.2) g/dL Albumin 3.2 L (3.4-5.0) g/dL Globulin 4.6 H (2.6-4.0) g/dL Albumin/Globulin Ratio 0.7 L (0.9-1.6) Urine HCG, Qual NEGATIVE (NEGATIVE) Departure - Departure Time of Disposition: 17:42 Disposition: Home, Self-Care 01 Condition: Good Clinical Impression: Arrhythmia, Herpes zoster Instructions: Palpitations, Shingles, [id number] Forms: ED Department Discharge Additional Instructions: I. Follow-up with the production assembly operator 2. Take your medication as prescribed 3. Return for any problems Sepsis Event Note - Focused Exam Vital Signs: Vital Signs Temp Pulse Resp BP Pulse Ox 06/24/19 17:30 93 16 128/75 97 06/24/19 17:00 91 17 126/78 97 06/24/19 16:30 104 H 17 135/82 99 06/24/19 16:12 98.9 F 101 H 18 157/67 H 96 Date Exam was Performed: 06/24/19 Time Exam was Performed: 17:40
[2019-06-24 17:27] LABS: BLOOD UREA NITROGEN,BUN 8 mg/dL (7.0-18.0); CARBON DIOXIDE,CO2 25.2 mmol/L (21.0-32.0); CHLORIDE,CL 102 mmol/L (98-107); GLUCOSE RANDOM 110 mg/dL (74-106); POTASSIUM,K 3.5 mmol/L (3.5-5.1); SODIUM,NA 139 mmol/L (136-145)
--- NOTE | 2019-06-24 17:28 | CR ---
Chest: Portable view of the chest was obtained. Comparison: No prior chest x-rays available. Heart size and mediastinum are normal. Lungs are clear with no acute parenchymal change. Bony structures are grossly intact. Impression: 1. Nothing acute is seen on portable chest x-ray. Diagnostic code #1 This report was dictated in MDT
[2019-06-24 18:15] VITALS: BP 129/78; PULSE 85
== END 2019-06-24 18:12 | disposition home or self-care (01) ==
LOC: MW.ED 16:07
DX: I49.9 Cardiac arrhythmia, unspecified (principal); B02.9 Zoster without complications; E66.9 Obesity, unspecified; Z68.39 Body mass index [BMI] 39.0-39.9, adult
CPT/HCPCS: 36415; 71045; 71045-26; 80053; 81025; 84484; 85025; 93005; 99284; 99285-25

== ENCOUNTER 2019-07-25 17:27 | Emergency (ER) | payer OTHER ==
[2019-07-25] MEDS ORDERED: Sodium Chloride 0.9% 10 ML Syringe FLUSH PRN (17:31)
[2019-07-25] MEDS ORDERED: Sodium Chloride 0.9% 2.5 ML Syringe FLUSH PRN (17:31)
[2019-07-25] MEDS ORDERED: Sodium Chloride 0.9% 1,000 ML IV ONE (17:32)
--- NOTE | 2019-07-25 17:49 | EDM.PDOC ---
<Dorothy Starks - Last Filed: 07/26/19 07:35> ED HPI GENERAL MEDICAL PROBLEM - General Chief Complaint: Cardiovascular Problem Stated Complaint: CHEST PAIN/TROUBLE BREATHING Time Seen by Provider: 07/25/19 17:31 - History of Present Illness INITIAL COMMENTS - FREE TEXT/NARRATIVE: History of present illness: 23-year-old female presenting with palpitations for the last 2 hours. Symptoms developed while she was at rest, at a wedding and she stood up and noticed her heart was beating fast. She was not doing anything heavily exerting. Denies any chest pain or difficulty breathing. No cough. No fever. No leg pain or swelling. No nausea or vomiting. Uncertain of her last menstrual period date as she has an IUD and has not had a period in several months. Similar symptoms in the past for which she was seen and worked up and no etiology found. Review of systems: As per history of present illness and below otherwise all systems reviewed and negative. Past medical history: As per history of present illness and as reviewed below otherwise noncontributory. Surgical history: As per history of present illness and as reviewed below otherwise noncontributory. Appendectomy Social history: No reported history of drug or alcohol abuse.. Denies tobacco. Family history: As per history of present illness and as reviewed below otherwise noncontributory. Physical exam: GEN: no acute distress, well appearing HEENT: Atraumatic, normocephalic, mucous membranes moist, Neck: supple, nontender, trachea midline. Lungs: No respiratory distress. Lungs are clear to auscultation Heart: Tachycardic, regular, Sinus rhythm in the 110-120s. Abdomen: Soft, nondistended, nontender. Back: nontender Extremities: Atraumatic. Neurovascularly intact. Neuro: Awake, alert, oriented. Neuro Exam nonfocal. Skin: warm, dry, no lesions Psych: Normal mood and affect, no anxiety, no depression Diagnostics: EKG at 5:27 PM, sinus tachycardia, rate 123, borderline prolonged QT interval, rate QTC 491. No STEMI. No arrhythmia. No ischemia. Therapeutics: [] MDM: Patient with palpitations, sinus tachycardia on EKG, no pain and does not report anxiety. Low risk for PE/DVT and d-dimer negative. TSH not elevated. Labs otherwise unremarkable. Given IV fluids with improvement in heart rate. X -ray pending. Signed out to Dr. Dow pending x-ray results. Impression: [] Plan: [] Definitive disposition and diagnosis as appropriate pending reevaluation and review of above. - Related Data Allergies Allergy/AdvReac Type Severity Reaction Status Date / Time No Known Allergies Allergy Verified 07/25/19 17:31 Home Meds: Home Meds . 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: Musculoskeletal History: Reports: None Neurological History: Reports: None Psychiatric History: Reports: None Endocrine/Metabolic History: Reports: Obesity/BMI 30+ Hematologic History: Reports: Anemia Immunologic History: Reports: None Oncologic (Cancer) History: Reports: None Dermatologic History: Reports: None - Infectious Disease History Infectious Disease History: Reports: None - Past Surgical History GI Surgical History: Reports: Appendectomy Other GI Surgeries/Procedures: 2010 Social & Family History - Family History Family Medical History: Noncontributory Oncologic: Reports: Ovarian, Renal - Tobacco Use Smoking Status *Q: Never Smoker - Caffeine Use Caffeine Use: Reports: None - Recreational Drug Use Recreational Drug Use: No ED ROS GENERAL - Review of Systems Review Of Systems: See Below (See dictation) ED EXAM, GENERAL - Physical Exam Exam: See Below (See dictation) Course - Vital Signs Last Recorded V/S: Last Vital Signs Temp 36.2 C 07/25/19 19:50 Pulse 100 07/25/19 19:50 Resp 18 07/25/19 19:50 BP 131/72 07/25/19 19:50 Pulse Ox 98 07/25/19 19:50 - Orders/Labs/Meds Labs: Laboratory Tests 07/25/19 07/25/19 07/25/19 Range/Units 18:12 18:12 18:12 WBC 10.77 (4.0-11.0) K/uL RBC 4.57 (4.30-5.90) M/uL Hgb 11.7 L (12.0-16.0) g/dL Hct 36.2 (36.0-46.0) % MCV 79.2 L (80.0-98.0) fL MCH 25.6 L (27.0-32.0) pg MCHC 32.3 (31.0-37.0) g/dL RDW Std Deviation 44.7 (28.0-62.0) fl RDW Coeff of Fina 15 (11.0-15.0) % Plt Count 341 (150-400) K/uL MPV 9.90 (7.40-12.00) fL Neut % (Auto) 82.6 H (48.0-80.0) % Lymph % (Auto) 13.9 L (16.0-40.0) % [place] % (Auto) 3.3 (0.0-15.0) % Eos % (Auto) 0.0 (0.0-7.0) % Baso % (Auto) 0.2 (0.0-1.5) % Neut # (Auto) 8.9 H (1.4-5.7) K/uL Lymph # (Auto) 1.5 (0.6-2.4) K/uL [place] # (Auto) 0.4 (0.0-0.8) K/uL Eos # (Auto) 0.0 (0.0-0.7) K/uL Baso # (Auto) 0.0 (0.0-0.1) K/uL Nucleated RBC % 0.0 /100WBC Nucleated RBCs # 0 K/uL D-Dimer, Quantitative (0.0-0.50) mg/L FEU Sodium 140 (136-145) mmol/L Potassium 3.4 L (3.5-5.1) mmol/L Chloride 103 (98-107) mmol/L Carbon Dioxide 23.3 (21.0-32.0) mmol/L BUN 10 (7.0-18.0) mg/dL Creatinine 0.7 (0.6-1.0) mg/dL Est Cr Clr Drug Dosing 113.43 mL/min Estimated GFR (MDRD) > 60.0 ml/min Glucose 121 H (74-106) mg/dL Calcium 9.2 (8.5-10.1) mg/dL Total Bilirubin 0.4 (0.2-1.0) mg/dL AST 19 (15-37) IU/L ALT 23 (14-63) IU/L Alkaline Phosphatase 169 H (46-116) U/L Total Protein 7.9 (6.4-8.2) g/dL Albumin 3.6 (3.4-5.0) g/dL Globulin 4.3 H (2.6-4.0) g/dL Albumin/Globulin Ratio 0.8 L (0.9-1.6) TSH 3rd Generation 0.71 (0.36-3.74) uIU/mL HCG, Qual NEGATIVE (NEG) 07/25/19 Range/Units 18:12 WBC (4.0-11.0) K/uL RBC (4.30-5.90) M/uL Hgb (12.0-16.0) g/dL Hct (36.0-46.0) % MCV (80.0-98.0) fL MCH (27.0-32.0) pg MCHC (31.0-37.0) g/dL RDW Std Deviation (28.0-62.0) fl RDW Coeff of Fina (11.0-15.0) % Plt Count (150-400) K/uL MPV (7.40-12.00) fL Neut % (Auto) (48.0-80.0) % Lymph % (Auto) (16.0-40.0) % [place] % (Auto) (0.0-15.0) % Eos % (Auto) (0.0-7.0) % Baso % (Auto) (0.0-1.5) % Neut # (Auto) (1.4-5.7) K/uL Lymph # (Auto) (0.6-2.4) K/uL [place] # (Auto) (0.0-0.8) K/uL Eos # (Auto) (0.0-0.7) K/uL Baso # (Auto) (0.0-0.1) K/uL Nucleated RBC % /100WBC Nucleated RBCs # K/uL D-Dimer, Quantitative 0.28 (0.0-0.50) mg/L FEU Sodium (136-145) mmol/L Potassium (3.5-5.1) mmol/L Chloride (98-107) mmol/L Carbon Dioxide (21.0-32.0) mmol/L BUN (7.0-18.0) mg/dL Creatinine (0.6-1.0) mg/dL Est Cr Clr Drug Dosing mL/min Estimated GFR (MDRD) ml/min Glucose (74-106) mg/dL Calcium (8.5-10.1) mg/dL Total Bilirubin (0.2-1.0) mg/dL AST (15-37) IU/L ALT (14-63) IU/L Alkaline Phosphatase (46-116) U/L Total Protein (6.4-8.2) g/dL Albumin (3.4-5.0) g/dL Globulin (2.6-4.0) g/dL Albumin/Globulin Ratio (0.9-1.6) TSH 3rd Generation (0.36-3.74) uIU/mL HCG, Qual (NEG) Meds: Medications Discontinued Medications Generic Name Dose Route Start Last Admin Trade Name Freq PRN Reason Stop Dose Admin Sodium Chloride 1,000 mls @ 999 mls/hr 07/25/19 17:32 07/25/19 18:09 Normal Saline IV 07/25/19 18:32 999 mls/hr .Bolus ONE Administration Sodium Chloride 10 ml 07/25/19 17:31 07/25/19 18:10 Saline Flush FLUSH 10 ml ASDIRECTED PRN Administration Keep Vein Open Sodium Chloride 2.5 ml 07/25/19 17:31 07/25/19 18:10 Saline Flush FLUSH 2.5 ml ASDIRECTED PRN Administration Keep Vein Open - Re-Assessments/Exams Free Text/Narrative Re-Assessment/Exam: 07/25/19 19:19 Patient is feeling much better. Heart rate is now in the 80s. She reports she does not feel the palpitations any longer. Discussed all available results and pending x-ray at this time. Plan for outpatient cardiology follow-up. Patient in no acute distress. Departure - Departure Time of Disposition: 19:50 (patient apparently left AMA after shift change) Disposition: Against Medical Advice 07 Clinical Impression: Left against medical advice Referrals: PCP,None [Primary Care Provider] - Forms: ED Department Discharge Sepsis Event Note (ED) - Evaluation Sepsis Screening Result: No Definite Risk <Marcio Dow - Last Filed: 07/28/19 09:45> Course - Vital Signs Text/Narrative:: I accepted care of this patient at [address] Portillo. In brief, this is a 23-year-old female presenting with palpitations. No to be tachycardic, heart rate improved. We are waiting for chest x-rays and anticipate discharge home with outpatient cardiology follow-up if x-rays are negative. I was informed by the nursing staff that the patient wanted to sign out of the emergency department AGAINST MEDICAL ADVICE. She did not want to have her x- rays performed. She departed prior to me having a chance to speak with her, her departure was while I was evaluating other patients. She did not return to the emergency department during the remainder of my shift.
[2019-07-25 18:50] LABS: BLOOD UREA NITROGEN,BUN 10 mg/dL (7.0-18.0); CARBON DIOXIDE,CO2 23.3 mmol/L (21.0-32.0); CHLORIDE,CL 103 mmol/L (98-107); GLUCOSE RANDOM 121 mg/dL (74-106); POTASSIUM,K 3.4 mmol/L (3.5-5.1); SODIUM,NA 140 mmol/L (136-145)
--- NOTE | 2019-07-25 20:17 | EDM.PDOC ---
ED HPI GENERAL MEDICAL PROBLEM - General Chief Complaint: Cardiovascular Problem Stated Complaint: CHEST PAIN/TROUBLE BREATHING Time Seen by Provider: 07/25/19 17:31 - History of Present Illness INITIAL COMMENTS - FREE TEXT/NARRATIVE: History of present illness: 23-year-old female presenting with palpitations for the last 2 hours. Symptoms developed while she was at rest, at a wedding and she stood up and noticed her heart was beating fast. She was not doing anything heavily exerting. Denies any chest pain or difficulty breathing. No cough. No fever. No leg pain or swelling. No nausea or vomiting. Uncertain of her last menstrual period date as she has an IUD and has not had a period in several months. Similar symptoms in the past for which she was seen and worked up and no etiology found. Review of systems: As per history of present illness and below otherwise all systems reviewed and negative. Past medical history: As per history of present illness and as reviewed below otherwise noncontributory. Surgical history: As per history of present illness and as reviewed below otherwise noncontributory. Appendectomy Social history: No reported history of drug or alcohol abuse.. Denies tobacco. Family history: As per history of present illness and as reviewed below otherwise noncontributory. Physical exam: GEN: no acute distress, well appearing HEENT: Atraumatic, normocephalic, mucous membranes moist, Neck: supple, nontender, trachea midline. Lungs: No respiratory distress. Lungs are clear to auscultation Heart: Tachycardic, regular, Sinus rhythm in the 110-120s. Abdomen: Soft, nondistended, nontender. Back: nontender Extremities: Atraumatic. Neurovascularly intact. Neuro: Awake, alert, oriented. Neuro Exam nonfocal. Skin: warm, dry, no lesions Diagnostics: EKG at 5:27 PM, sinus tachycardia, rate 123, borderline prolonged QT interval, rate QTC 491. No STEMI. No arrhythmia. No ischemia. Therapeutics: [] MDM: Impression: [] Plan: [] Definitive disposition and diagnosis as appropriate pending reevaluation and review of above. - Related Data Allergies Allergy/AdvReac Type Severity Reaction Status Date / Time No Known Allergies Allergy Verified 07/25/19 17:31 Home Meds: Home Meds . 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: Musculoskeletal History: Reports: None Neurological History: Reports: None Psychiatric History: Reports: None Endocrine/Metabolic History: Reports: Obesity/BMI 30+ Hematologic History: Reports: Anemia Immunologic History: Reports: None Oncologic (Cancer) History: Reports: None Dermatologic History: Reports: None - Infectious Disease History Infectious Disease History: Reports: None - Past Surgical History GI Surgical History: Reports: Appendectomy Other GI Surgeries/Procedures: 2010 Social & Family History - Family History Family Medical History: Noncontributory Oncologic: Reports: Ovarian, Renal - Tobacco Use Smoking Status *Q: Never Smoker - Caffeine Use Caffeine Use: Reports: None - Recreational Drug Use Recreational Drug Use: No ED ROS GENERAL - Review of Systems Review Of Systems: See Below ED EXAM, GENERAL - Physical Exam Exam: See Below Free Text/Narrative:: History of present illness: 23-year-old female presenting with palpitations for the last 2 hours. Symptoms developed while she was at rest, at a wedding and she stood up and noticed her heart was beating fast. She was not doing anything heavily exerting. Denies any chest pain or difficulty breathing. No cough. No fever. No leg pain or swelling. No nausea or vomiting. Uncertain of her last menstrual period date as she has an IUD and has not had a period in several months. Similar symptoms in the past for which she was seen and worked up and no etiology found. Review of systems: As per history of present illness and below otherwise all systems reviewed and negative. Past medical history: As per history of present illness and as reviewed below otherwise noncontributory. Surgical history: As per history of present illness and as reviewed below otherwise noncontributory. Appendectomy Social history: No reported history of drug or alcohol abuse.. Denies tobacco. Family history: As per history of present illness and as reviewed below otherwise noncontributory. Physical exam: GEN: no acute distress, well appearing HEENT: Atraumatic, normocephalic, mucous membranes moist, Neck: supple, nontender, trachea midline. Lungs: No respiratory distress. Lungs are clear to auscultation Heart: Tachycardic, regular, Sinus rhythm in the 110-120s. Abdomen: Soft, nondistended, nontender. Back: nontender Extremities: Atraumatic. Neurovascularly intact. Neuro: Awake, alert, oriented. Neuro Exam nonfocal. Skin: warm, dry, no lesions Diagnostics: EKG at 5:27 PM, sinus tachycardia, rate 123, borderline prolonged QT interval, rate QTC 491. No STEMI. No arrhythmia. No ischemia. Therapeutics: [] MDM: Impression: [] Plan: [] Definitive disposition and diagnosis as appropriate pending reevaluation and review of above. Course - Vital Signs Text/Narrative:: I accepted care of this patient at [address] Portillo. In brief, this is a 23-year-old female presenting with palpitations. No to be tachycardic, heart rate improved. We are waiting for chest x-rays and anticipate discharge home with outpatient cardiology follow-up if x-rays are negative. I was informed by the nursing staff that the patient wanted to sign out of the emergency department AGAINST MEDICAL ADVICE. She did not want to have her x- rays performed. She departed prior to me having a chance to speak with her, her departure was while I was evaluating other patients. She did not return to the emergency department during the remainder of my shift. Last Recorded V/S: Last Vital Signs Temp 36.2 C 07/25/19 19:50 Pulse 100 07/25/19 19:50 Resp 18 07/25/19 19:50 BP 131/72 07/25/19 19:50 Pulse Ox 98 07/25/19 19:50 - Orders/Labs/Meds Orders: Active Orders 24 hr Category Date Time Status EKG Documentation Completion [RC] STAT Care 07/25/19 17:31 Active Saline Lock Insert [OM.PC] Stat Oth 07/25/19 17:31 Ordered Labs: Laboratory Tests 07/25/19 07/25/19 07/25/19 Range/Units 18:12 18:12 18:12 WBC 10.77 (4.0-11.0) K/uL RBC 4.57 (4.30-5.90) M/uL Hgb 11.7 L (12.0-16.0) g/dL Hct 36.2 (36.0-46.0) % MCV 79.2 L (80.0-98.0) fL MCH 25.6 L (27.0-32.0) pg MCHC 32.3 (31.0-37.0) g/dL RDW Std Deviation 44.7 (28.0-62.0) fl RDW Coeff of Fina 15 (11.0-15.0) % Plt Count 341 (150-400) K/uL MPV 9.90 (7.40-12.00) fL Neut % (Auto) 82.6 H (48.0-80.0) % Lymph % (Auto) 13.9 L (16.0-40.0) % [place] % (Auto) 3.3 (0.0-15.0) % Eos % (Auto) 0.0 (0.0-7.0) % Baso % (Auto) 0.2 (0.0-1.5) % Neut # (Auto) 8.9 H (1.4-5.7) K/uL Lymph # (Auto) 1.5 (0.6-2.4) K/uL [place] # (Auto) 0.4 (0.0-0.8) K/uL Eos # (Auto) 0.0 (0.0-0.7) K/uL Baso # (Auto) 0.0 (0.0-0.1) K/uL Nucleated RBC % 0.0 /100WBC Nucleated RBCs # 0 K/uL D-Dimer, Quantitative (0.0-0.50) mg/L FEU Sodium 140 (136-145) mmol/L Potassium 3.4 L (3.5-5.1) mmol/L Chloride 103 (98-107) mmol/L Carbon Dioxide 23.3 (21.0-32.0) mmol/L BUN 10 (7.0-18.0) mg/dL Creatinine 0.7 (0.6-1.0) mg/dL Est Cr Clr Drug Dosing 113.43 mL/min Estimated GFR (MDRD) > 60.0 ml/min Glucose 121 H (74-106) mg/dL Calcium 9.2 (8.5-10.1) mg/dL Total Bilirubin 0.4 (0.2-1.0) mg/dL AST 19 (15-37) IU/L ALT 23 (14-63) IU/L Alkaline Phosphatase 169 H (46-116) U/L Total Protein 7.9 (6.4-8.2) g/dL Albumin 3.6 (3.4-5.0) g/dL Globulin 4.3 H (2.6-4.0) g/dL Albumin/Globulin Ratio 0.8 L (0.9-1.6) TSH 3rd Generation 0.71 (0.36-3.74) uIU/mL HCG, Qual NEGATIVE (NEG) 07/25/19 Range/Units 18:12 WBC (4.0-11.0) K/uL RBC (4.30-5.90) M/uL Hgb (12.0-16.0) g/dL Hct (36.0-46.0) % MCV (80.0-98.0) fL MCH (27.0-32.0) pg MCHC (31.0-37.0) g/dL RDW Std Deviation (28.0-62.0) fl RDW Coeff of Fina (11.0-15.0) % Plt Count (150-400) K/uL MPV (7.40-12.00) fL Neut % (Auto) (48.0-80.0) % Lymph % (Auto) (16.0-40.0) % [place] % (Auto) (0.0-15.0) % Eos % (Auto) (0.0-7.0) % Baso % (Auto) (0.0-1.5) % Neut # (Auto) (1.4-5.7) K/uL Lymph # (Auto) (0.6-2.4) K/uL [place] # (Auto) (0.0-0.8) K/uL Eos # (Auto) (0.0-0.7) K/uL Baso # (Auto) (0.0-0.1) K/uL Nucleated RBC % /100WBC Nucleated RBCs # K/uL D-Dimer, Quantitative 0.28 (0.0-0.50) mg/L FEU Sodium (136-145) mmol/L Potassium (3.5-5.1) mmol/L Chloride (98-107) mmol/L Carbon Dioxide (21.0-32.0) mmol/L BUN (7.0-18.0) mg/dL Creatinine (0.6-1.0) mg/dL Est Cr Clr Drug Dosing mL/min Estimated GFR (MDRD) ml/min Glucose (74-106) mg/dL Calcium (8.5-10.1) mg/dL Total Bilirubin (0.2-1.0) mg/dL AST (15-37) IU/L ALT (14-63) IU/L Alkaline Phosphatase (46-116) U/L Total Protein (6.4-8.2) g/dL Albumin (3.4-5.0) g/dL Globulin (2.6-4.0) g/dL Albumin/Globulin Ratio (0.9-1.6) TSH 3rd Generation (0.36-3.74) uIU/mL HCG, Qual (NEG) Meds: Medications Discontinued Medications Generic Name Dose Route Start Last Admin Trade Name Freq PRN Reason Stop Dose Admin Sodium Chloride 1,000 mls @ 999 mls/hr 07/25/19 17:32 07/25/19 18:09 Normal Saline IV 07/25/19 18:32 999 mls/hr .Bolus ONE Administration Sodium Chloride 10 ml 07/25/19 17:31 07/25/19 18:10 Saline Flush FLUSH 10 ml ASDIRECTED PRN Administration Keep Vein Open Sodium Chloride 2.5 ml 07/25/19 17:31 07/25/19 18:10 Saline Flush FLUSH 2.5 ml ASDIRECTED PRN Administration Keep Vein Open Departure - Departure Time of Disposition: 20:16 Disposition: Against Medical Advice 07 Clinical Impression: Left against medical advice Referrals: PCP,None [Primary Care Provider] - Forms: ED Department Discharge Sepsis Event Note (ED) - Evaluation Sepsis Screening Result: No Definite Risk - Focused Exam Vital Signs: Vital Signs Temp Pulse Resp BP Pulse Ox 07/25/19 19:50 36.2 C 100 18 131/72 98 07/25/19 18:11 104 H 16 132/77 98 07/25/19 17:31 36.1 C 117 H 20 135/77 99
[2019-07-25 20:23] VITALS: BP 131/72; PULSE 100
== END 2019-07-25 19:50 | disposition left against medical advice (07) ==
LOC: MW.ED 17:27
DX: R00.2 Palpitations (principal); Z53.20 Procedure and treatment not carried out because of patient's decision for unspecified reasons; E66.9 Obesity, unspecified; Z68.38 Body mass index [BMI] 38.0-38.9, adult
CPT/HCPCS: 36415; 80053; 84443; 84703; 85025; 85379; 93005; 99285; J7030; 99283

== ENCOUNTER 2020-03-02 22:49 | Emergency (ER) | payer OTHER ==
[2020-03-02] MEDS ORDERED: predniSONE 20 MG Tab PO ONE (22:51)
--- NOTE | 2020-03-02 22:53 | EDM.PDOC ---
ED HPI GENERAL MEDICAL PROBLEM - General Chief Complaint: General Stated Complaint: ALLEGIC REACTION Time Seen by Provider: 03/02/20 22:50 - History of Present Illness INITIAL COMMENTS - FREE TEXT/NARRATIVE: History of present illness: [] The patient had trouble swallowing. Patient has been on amoxicillin for 8 days. At 9 PM she took a pill and shortly thereafter she began to have trouble swallowing. She took 50 mg of p.o. Benadryl. She feels better now. Is never had any problem with amoxicillin. She has a UTI that somewhat refractory. She had a course of Bactrim before the amoxicillin started. She had dysuria at the onset of the illness but does not have dysuria any longer. The patient has no fever and chills. Patient is not vomiting. She has no flank pain. Review of systems: As per history of present illness and below otherwise all systems reviewed and negative. Past medical history: As per history of present illness and as reviewed below otherwise noncontributory. Surgical history: As per history of present illness and as reviewed below otherwise noncontributory. Social history: No reported history of drug or alcohol abuse. Family history: As per history of present illness and as reviewed below otherwise noncontributory. Physical exam: Constitutional - well developed, well-nourished and in no acute distress HEENT - normocephalic, no evidence of trauma - external nose and mouth normal - no mass in neck and no JVD - mucosae moist EYES - full EOM, PERRL, no icterus - no evidence of inflammation, injection, or drainage Respiratory - no respiratory distress, equal bilateral expansion, lungs clear to auscultation and no abnormal lung sounds Cardiovascular - Regular Rhythm with S1 and S2 appreciated and no murmur, gallop or rub. GI - abdomen soft without distension or organomegaly - normal bowel sounds - no guard or rebound Musculoskeletal no gross deformity of long bones or joints - no tenderness, swelling or edema Neurologic - Alert and oriented times four - CN II-XII grossly intact - motor sensory and coordination symmetrically normal Psychiatric - appropriate mood and affect with normal thought content Hematologic - No petechiae or purpura - mucosa appropriate color and sclera not pale - normal nail bed color and refill Integument -there are some blanching urticaria about the left forehead and left side of the face as well as the right upper arm.- normal turgor Diagnostics: [] Therapeutics: [] Impression: [] Plan: [] Definitive disposition and diagnosis as appropriate pending reevaluation and review of above. 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: Musculoskeletal History: Reports: None Neurological History: Reports: None Psychiatric History: Reports: None Endocrine/Metabolic History: Reports: Obesity/BMI 30+ Hematologic History: Reports: Anemia Immunologic History: Reports: None Oncologic (Cancer) History: Reports: None Dermatologic History: Reports: None - Infectious Disease History Infectious Disease History: Reports: Shingles - Past Surgical History GI Surgical History: Reports: Appendectomy Other GI Surgeries/Procedures: 2010 Social & Family History - Family History Family Medical History: No Pertinent Family History Oncologic: Reports: Ovarian, Renal - Caffeine Use Caffeine Use: Reports: Coffee, Tea ED ROS GENERAL - Review of Systems Review Of Systems: Comprehensive ROS is negative, except as noted in HPI. ED EXAM, GENERAL - Physical Exam Exam: See Below Free Text/Narrative:: My physical exam is in the HPI Course - Vital Signs Text/Narrative:: 2255 hrs. patient began to have more macular rash on the extremities on both sides and feel like her voice was scratchy. Lungs were clear. An Afrin and prednisone ordered She has no symptoms in her and have a fair gentleman. Will be discharged in satisfactory condition Last Recorded V/S: Last Vital Signs Temp 37.2 C 03/02/20 22:51 Pulse 94 03/02/20 22:51 Resp 20 03/02/20 22:51 BP 162/74 H 03/02/20 22:51 Pulse Ox 98 03/02/20 22:51 - Orders/Labs/Meds Labs: Laboratory Tests 03/02/20 03/02/20 Range/Units 23:10 23:10 Urine Color YELLOW Urine Appearance CLEAR Urine pH 5.5 (5.0-8.0) Ur Specific [place] >= 1.030 (1.001-1.035) Urine Protein NEGATIVE (NEGATIVE) mg/dL Urine Glucose (UA) NEGATIVE (NEGATIVE) mg/dL Urine Ketones NEGATIVE (NEGATIVE) mg/dL Urine Occult Blood TRACE-INTACT H (NEGATIVE) Urine Nitrite NEGATIVE (NEGATIVE) Urine Bilirubin NEGATIVE (NEGATIVE) Urine Urobilinogen 0.2 (<2.0) EU/dL Ur Leukocyte Esterase NEGATIVE (NEGATIVE) Urine RBC 0-3 (0-2/HPF) Urine WBC 0-2 (0-5/HPF) Ur Epithelial Cells FEW (NONE-FEW) Urine Bacteria FEW (NEGATIVE) Urine Mucus LIGHT (NONE-MOD) Urine HCG, Qual NEGATIVE (NEGATIVE) Meds: Medications Discontinued Medications Generic Name Dose Route Start Last Admin Trade Name [place] PRN Reason Stop Dose Admin Epinephrine HCl 0.3 mg 03/02/20 22:58 03/02/20 23:00 Adrenalin SUBCUT 03/02/20 22:59 0.3 mg ONETIME ONE Administration Epinephrine HCl Confirm 03/02/20 22:58 03/02/20 22:59 Adrenalin Administered 03/02/20 22:59 Not Given Dose 1 mg .ROUTE .STK-MED ONE Prednisone 60 mg 03/02/20 22:51 03/02/20 23:00 Prednisone PO 03/02/20 22:52 60 mg ONETIME ONE Administration Departure - Departure Time of Disposition: 00:29 Disposition: Home, Self-Care 01 Condition: Good Clinical Impression: Acute allergic reaction - Discharge Information Prescriptions: predniSONE [Prednisone] 60 mg PO DAILY 5 Days #15 tablet Instructions: Allergies, Adult, [id number] Forms: ED Department Discharge Additional Instructions: Do not take the amoxicillin anymore and put this on your allergy list. Take Benadryl 50 mg 3 times a day and you may cut the dose in half if it makes you too drowsy. Take it for least 3 days. Fill the prescription for prednisone. Do not put yourself into an isolated area where he would not be able to be accessed by 911. At the earliest sign of any trouble breathing, lightheadedness, or rash he should get back to the hospital. Urine culture is sent to make sure that it is in fact cleared of infection although the initial urinalysis looks good tonight. [facility] [address] [place] [address] [facility] [address] [place] [address] The following information is given to patients seen in the emergency department who are being discharged to home. This information is to outline your options for follow-up care. We provide all patients seen in our emergency department with a follow-up referral. The need for follow-up, as well as the timing and circumstances, are variable depending upon the specifics of your emergency department visit. If you don't have a primary care physician on staff, we will provide you with a referral. We always advise you to contact your personal physician following an emergency department visit to inform them of the circumstance of the visit and for follow-up with them and/or the need for any referrals to a consulting specialist. The emergency department will also refer you to a specialist when appropriate. This referral assures that you have the opportunity for follow-up care with a specialist. All of these measure are taken in an effort to provide you with optimal care, which includes your follow-up. Under all circumstances we always encourage you to contact your private physician who remains a resource for coordinating your care. When calling for follow-up care, please make the office aware that this follow-up is from your recent emergency room visit. If for any reason you are refused follow-up, please contact the [facility] Emergency Department at and asked to speak to the emergency department charge nurse. Sepsis Event Note (ED) - Focused Exam Vital Signs: Vital Signs Temp Pulse Resp BP Pulse Ox 03/02/20 22:51 37.2 C 94 20 162/74 H 98
[2020-03-02] MEDS ORDERED: EPINEPHrine 1 MG/1 ML Amp SUBCUT ONE (22:58)
[2020-03-02] MEDS ORDERED: EPINEPHrine 1 MG/ML SDV ONE (22:58)
[2020-03-03 02:09] VITALS: BP 140/82; PULSE 72
== END 2020-03-03 00:40 | disposition home or self-care (01) ==
LOC: MW.ED 22:49
DX: T78.40XA Allergy, unspecified, initial encounter (principal); E66.9 Obesity, unspecified; Z68.41 Body mass index [BMI] 40.0-44.9, adult; Z88.0 Allergy status to penicillin
CPT/HCPCS: 81001; 81025; 87086; 96372; 99284; A9270; J0171; 99282

== ENCOUNTER 2020-04-12 23:47 | Emergency (ER) | payer OTHER ==
--- NOTE | 2020-04-13 01:54 | CR ---
INDICATION: short of breath CHEST, ONE VIEW An AP radiograph of the chest was performed. Comparison: No previous studies are currently available for comparison. The lungs appear clear and no pleural effusions are identified. The cardiomediastinal silhouette and pulmonary vasculature appear normal, as do the visualized bones. IMPRESSION: No acute intrathoracic abnormality identified. MARCO BAPTISTE MD [employer] [employer] Dictated by: Aston Baptiste MD @ 04/13/2020 01:52:56 (Electronically Signed)
--- NOTE | 2020-04-13 02:00 | EDM.PDOC ---
ED HPI GENERAL MEDICAL PROBLEM - General Chief Complaint: Respiratory Problem Stated Complaint: NEED TO BE TESTED FOR COVID Time Seen by Provider: 04/12/20 23:56 - History of Present Illness INITIAL COMMENTS - FREE TEXT/NARRATIVE: CHIEF COMPLAINT(S): "I woke up gasping for air." HISTORY OF PRESENT ILLNESS: This is a 24-year-old with a past medical history of obesity and recent urinary tract infection who is on antibiotics who comes to the emergency department with a chief complaint of "I woke up gasping for air." The patient states that she was sleeping and she woke up gasping for air and felt short of breath. She states that she has been having a cough which is dry. She denies any fevers or chills or sick contacts. She states that when she awoke after period of time and arrival her breathing has returned to normal. She does not know if she has a history of sleep apnea and does not know if she snores. She denies any chest pain, diaphoresis, nausea or vomiting. She denies any syncope. She denies any recent travel, recent surgery or prior history of DVT or PE. She does not know if she has any Covid contacts. REVIEW OF SYSTEMS: Constitutional: Denies fever, chills. Eyes: Denies eye pain Ears, Nose, Mouth, & Throat: Denies earache, runny nose, sore throat Cardiovascular: Denies chest pain Respiratory: Positive for shortness of breath and gasping for air and nonproductive cough Gastrointestinal: Denies Nausea, vomiting, diarrhea, hematochezia. Genitourinary: Denies hematuria Skin:Denies a rash MSK: Denies joint pain Neurological: Denies blurred vision, numbness, tingling, weakness Psychiatric: Denies depression PAST MEDICAL HISTORY: As per history of present illness and as reviewed below otherwise noncontributory. SURGICAL HISTORY: As per history of present illness and as reviewed below otherwise noncontributory. SOCIAL HISTORY: As per history of present illness and as reviewed below otherwise noncontributory. FAMILY HISTORY: As per history of present illness and as reviewed below otherwise noncontributory. EXAMINATION OF ORGAN SYSTEMS/BODY AREAS: Constitutional: Blood pressure is 135/98, heart rate 106, respiratory rate 18 with an oxygen saturation 95% on room air. Temperature 36.7 General: Overall well-appearing woman who is in no acute distress Psychiatric: Appropriate mood and affect. Eyes: No scleral icterus or conjunctival erythema ENMT: Moist mucous membranes. No pharyngeal erythema Cardiovascular: Regular, rate, and rhythm. No gallops, murmurs, or rubs. Bilateral upper extremity pulses symmetric and intact. No peripheral edema. No JVD. Respiratory: Lungs clear to auscultation bilaterally. No wheezes, rales, or rhonchi. Gastrointestinal: Soft, non-tender, non-distended. Normoactive bowel sounds Genitourinary: No suprapubic tenderness Musculoskeletal: Normal range of motion. Skin: No lesions or abrasions. Neurological: Alert, GCS 15 MEDICAL DECISION MAKING AND COURSE IN THE ED WITH INTERPRETATION/REVIEW OF DIAGNOSTIC STUDIES: This is a 24-year-old and with a past medical history of anxiety and obesity who comes to the emergency department with acute episode of gasping for air with shortness of breath from sleeping which has resolved who has had a nonproductive cough who is tachycardic but saturating appropriately. Patient is afebrile. At this time I do believe this is secondary to undiagnosed sleep apnea. However we will obtain a Covid swab and a chest x-ray for evaluation of any abnormality. I do not believe any other labs or imaging are indicated. Wells Criteria Clinical signs/symptoms of DVT: No (0) PE #1 Dx or equally likely: No (0) Heart Rate >100: Yes (1.5) Immobilization for 3 days or surgery in last month: No (0) Previously Dx PE or DVT: No (0) Hemoptysis: No (0) Malignancy w/ Tx within 6 months or palliative: No (0) Wells Score: 1.5 Patient has a low risk Wells score therefore no work-up for PE will be initiated Laboratory: Covid is negative The radiological images were viewed by myself along with reading the report from the radiologist. Chest x-ray does not reveal any acute cardiopulmonary process. Immediate reevaluation the patient's tachycardia had resolved. I did discuss with her that she should follow-up with her primary care physician regarding possible sleep apnea. I discussed that if she had any worsening shortness of breath or chest pain she should return to the emergency department. There could be a component of viral syndrome given the nonproductive cough however she should use Tylenol and Motrin as needed. DISPOSITION: The patient was discharged home in stable condition. The patient will follow up with primary care physician within 1 week CONDITION: Good PROCEDURES: None FINAL IMPRESSION(S)/DIAGNOSES: 1. Acute dyspnea likely secondary to undiagnosed sleep apnea Moisés Gonzalez M.D. 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: Musculoskeletal History: Reports: None Neurological History: Reports: None Psychiatric History: Reports: Anxiety Endocrine/Metabolic History: Reports: Obesity/BMI 30+ 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 Hematologic History: Reports: Anemia Immunologic History: Reports: None Oncologic (Cancer) History: Reports: None Dermatologic History: Reports: None - Infectious Disease History Infectious Disease History: Reports: Shingles - Past Surgical History Head Surgeries/Procedures: Reports: None GI Surgical History: Reports: Appendectomy Other GI Surgeries/Procedures: 2010 Social & Family History - Family History Family Medical History: No Pertinent Family History Oncologic: Reports: Ovarian, Renal - Caffeine Use Caffeine Use: Reports: None - Recreational Drug Use Recreational Drug Use: No ED ROS GENERAL - Review of Systems Review Of Systems: See Below ED EXAM, GENERAL - Physical Exam Exam: See Below Course - Vital Signs Last Recorded V/S: Last Vital Signs Temp 36.7 C 04/13/20 00:00 Pulse 100 04/13/20 02:06 Resp 16 04/13/20 02:06 BP 126/88 04/13/20 02:06 Pulse Ox 96 04/13/20 02:06 - Orders/Labs/Meds Labs: Laboratory Tests 04/13/20 Range/Units 00:10 SARS-CoV-2 RNA (JETT) NEGATIVE (NEGATIVE) Departure - Departure Time of Disposition: 01:59 Disposition: Home, Self-Care 01 Condition: Fair Clinical Impression: Dyspnea Qualifiers: Dyspnea type: unspecified Qualified Code(s): R06.00 - Dyspnea, unspecified - Discharge Information *PRESCRIPTION DRUG MONITORING PROGRAM REVIEWED*: No *COPY OF PRESCRIPTION DRUG MONITORING REPORT IN PATIENT WOO: No Instructions: Shortness of Breath, Adult, [id number], Upper Respiratory Infection, Adult, [id number] Referrals: Aishwarya Crowley NP [Primary Care Provider] - Forms: ED Department Discharge Additional Instructions: Your evaluated today on an emergent basis. At this time your x-ray and Covid were normal. At this time I do recommend that you follow-up with your primary care physician for further evaluation and monitoring. If you have any worsening shortness of breath or development of chest pain or pass out please return to the emergency department. Given that she woke up gasping for air I do want you to discuss the possibility of sleep apnea with your primary care physician. [facility] - [facility] [address] [place] [address] [id number] [address] [address] The patient is informed of any results of their evaluation and diagnostic workup and all questions are answered. They are given discharge instructions and return precautions. The patient is stable for discharge. The patient states they understand and agree with the plan and that they will return if their symptoms get worse or if they have any new concerns. The following information is given to patients seen in the emergency department who are being discharged to home. This information is to outline your options for follow-up care. We provide all patients seen in our emergency department with a follow-up referral. The need for follow-up, as well as the timing and circumstances, are variable depending upon the specifics of your emergency department visit. If you don't have a primary care physician on staff, we will provide you with a referral. We always advise you to contact your personal physician following an emergency department visit to inform them of the circumstance of the visit and for follow-up with them and/or the need for any referrals to a consulting specialist. The emergency department will also refer you to a specialist when appropriate. This referral assures that you have the opportunity for follow-up care with a specialist. All of these measure are taken in an effort to provide you with optimal care, which includes your follow-up. Under all circumstances we always encourage you to contact your private physician who remains a resource for coordinating your care. When calling for follow-up care, please make the office aware that this follow-up is from your recent emergency room visit. If for any reason you are refused follow-up, please contact the [facility] Emergency Department at and asked to speak to the emergency department charge nurse. Sepsis Event Note (ED) - Evaluation Sepsis Screening Result: No Definite Risk
[2020-04-13 02:06] VITALS: BP 126/88; PULSE 100
== END 2020-04-13 02:06 | disposition home or self-care (01) ==
LOC: MW.ED 23:47
DX: R06.02 Shortness of breath (principal); E66.9 Obesity, unspecified; Z68.38 Body mass index [BMI] 38.0-38.9, adult; Z88.0 Allergy status to penicillin; Z20.822 Contact with and (suspected) exposure to COVID-19
CPT/HCPCS: 71045; 71045-26; 99282; 99285-25; U0002

== ENCOUNTER 2020-04-25 11:59 | Emergency (ER) | payer OTHER ==
--- NOTE | 2020-04-25 12:05 | EDM.PDOC ---
ED HPI GENERAL MEDICAL PROBLEM - General Chief Complaint: Allergic Reaction Stated Complaint: EMS Time Seen by Provider: 04/25/20 12:03 - History of Present Illness INITIAL COMMENTS - FREE TEXT/NARRATIVE: History of present illness: [] This pleasant 24-year-old female ate a bagel as usual this morning and was exposed to nothing new except a different kind of bottled water. About a half an hour before arrival she began to feel her throat tighten up like it had when she had in the allergic reaction to amoxicillin. Paramedics found her with some respiratory difficulty with a good blood pressure. She had felt lightheaded. They gave her Benadryl and Solu-Medrol and she improved by the time she got here until she felt normal. Review of systems: As per history of present illness and below otherwise all systems reviewed and negative. Past medical history: As per history of present illness and as reviewed below otherwise noncontributory. Surgical history: As per history of present illness and as reviewed below otherwise noncontributory. Social history: No reported history of drug or alcohol abuse. Family history: As per history of present illness and as reviewed below otherwise noncontributory. Physical exam: Constitutional - well developed, well-nourished and in no acute distress HEENT - normocephalic, no evidence of trauma - external nose and mouth normal - no mass in neck and no JVD - mucosae moist EYES - full EOM, PERRL, no icterus - no evidence of inflammation, injection, or drainage Respiratory - no respiratory distress, equal bilateral expansion, lungs clear to auscultation and no abnormal lung sounds Cardiovascular - Regular Rhythm with S1 and S2 appreciated and no murmur, gallop or rub. GI - abdomen soft without distension or organomegaly - normal bowel sounds - no guard or rebound Musculoskeletal no gross deformity of long bones or joints - no tenderness, swelling or edema Neurologic - Alert and oriented times four - CN II-XII grossly intact - motor sensory and coordination symmetrically normal Psychiatric - appropriate mood and affect with normal thought content Hematologic - No petechiae or purpura - mucosa appropriate color and sclera not pale - normal nail bed color and refill Integument - no rash or evidence of trauma - normal turgor Diagnostics: [] Therapeutics: [] Impression: [] Plan: [] Definitive disposition and diagnosis as appropriate pending reevaluation and review of above. - Related Data Allergies Allergy/AdvReac Type Severity Reaction Status Date / Time amoxicillin Allergy Hives Verified 04/25/20 12:15 Home Meds: Home Meds . 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: None Hematologic History: Reports: Anemia Immunologic History: Reports: None Oncologic (Cancer) History: Reports: None Dermatologic History: Reports: None - Infectious Disease History Infectious Disease History: Reports: Shingles - Past Surgical History Head Surgeries/Procedures: Reports: None GI Surgical History: Reports: Appendectomy Other GI Surgeries/Procedures: 2010 Social & Family History - Family History Family Medical History: No Pertinent Family History Oncologic: Reports: Ovarian, Renal - Caffeine Use Caffeine Use: Reports: None ED ROS ALLERGIC REACTION - Review of Systems Review Of Systems: Comprehensive ROS is negative, except as noted in HPI. ED EXAM GENERAL NO PERIP PULSE - Physical Exam Exam: See Below Text/Narrative:: My physical exam is in the HPI Course - Vital Signs Text/Narrative:: 12:43 PM patient has no deterioration. Advised to get an EpiPen if she is getting In the wilderness or do something where paramedics would be unavailable. Last Recorded V/S: Last Vital Signs Temp 37.2 C 04/25/20 12:13 Pulse 87 04/25/20 12:13 Resp 20 04/25/20 12:13 BP 140/87 04/25/20 12:13 Pulse Ox 98 04/25/20 12:13 Departure - Departure Time of Disposition: 12:43 Disposition: Home, Self-Care 01 Condition: Good Clinical Impression: Allergic reaction - Discharge Information Forms: ED Department Discharge Additional Instructions: You are going to be somewhere that remote like camping or out in the wilderness you need to have an EpiPen. [facility] - Primary Care [address] [place] [id number] [facility] [address] [place] [address] The following information is given to patients seen in the emergency department who are being discharged to home. This information is to outline your options for follow-up care. We provide all patients seen in our emergency department with a follow-up referral. The need for follow-up, as well as the timing and circumstances, are variable depending upon the specifics of your emergency department visit. If you don't have a primary care physician on staff, we will provide you with a referral. We always advise you to contact your personal physician following an emergency department visit to inform them of the circumstance of the visit and for follow-up with them and/or the need for any referrals to a consulting specialist. The emergency department will also refer you to a specialist when appropriate. This referral assures that you have the opportunity for follow-up care with a specialist. All of these measure are taken in an effort to provide you with optimal care, which includes your follow-up. Under all circumstances we always encourage you to contact your private physician who remains a resource for coordinating your care. When calling for follow-up care, please make the office aware that this follow-up is from your recent emergency room visit. If for any reason you are refused follow-up, please contact the [facility] Emergency Department at and asked to speak to the emergency department charge nurse. Sepsis Event Note (ED) - Focused Exam Vital Signs: Vital Signs Temp Pulse Resp BP Pulse Ox 04/25/20 12:13 37.2 C 87 20 140/87 98
[2020-04-25 12:57] VITALS: BP 120/59; PULSE 76
== END 2020-04-25 12:57 | disposition home or self-care (01) ==
LOC: MW.ED 11:59
DX: T78.40XA Allergy, unspecified, initial encounter (principal); K21.9 Gastro-esophageal reflux disease without esophagitis; E66.9 Obesity, unspecified
CPT/HCPCS: 99284

== ENCOUNTER 2020-08-01 16:23 | Emergency (ER) | payer OTHER ==
[2020-08-01 16:37] VITALS: BP 151/89; PULSE 84
[2020-08-01] MEDS ORDERED: Ketorolac 60 MG/2 ML SDV IM ONE (16:46)
[2020-08-01] MEDS ORDERED: Orphenadrine 60 MG/2 ML Inj IM ONE (16:46)
--- NOTE | 2020-08-01 16:46 | EDM.PDOC ---
ED HPI GENERAL MEDICAL PROBLEM - General Chief Complaint: Back Pain or Injury Stated Complaint: FALL, LOWER BACK PAIN Time Seen by Provider: 08/01/20 16:26 Source of Information: Reports: Patient History Limitations: Reports: No Limitations - History of Present Illness INITIAL COMMENTS - FREE TEXT/NARRATIVE: HISTORY AND PHYSICAL: History of present illness: Patient is a 24-year-old female who presents to the emergency room with complaints of lumbar back pain post fall. She states she was out in a field where they were digging post holes for fencing when she did not noticed a hole in the ground and had fallen about 8 feet. She states she was able to crawl out of the whole but since has had lumbar back pain. Patient denies any fever, chills, headache, change in vision, syncope or near syncope. Denies any chest pain, back pain, shortness of breath or cough. Denies any abdominal pain, nausea, vomiting, diarrhea, constipation or dysuria. Has not noted any blood in urine or stool. Patient has been eating and drinking appropriately. Review of systems: As per history of present illness and below otherwise all systems reviewed and negative. Past medical history: As per history of present illness and as reviewed below otherwise noncontributory. Surgical history: As per history of present illness and as reviewed below otherwise noncontributory. Social history: See social history for further information Family history: As per history of present illness and as reviewed below otherwise noncontributory. Physical exam: General: Well developed and well nourished 24-year-old female. Alert and orientated x 3. Nontoxic in appearance and in no acute distress. Vital signs are stable and have been reviewed by me. Nursing notes were reviewed. HEENT: Atraumatic, normocephalic, pupils equal and reactive bilaterally, negative for conjunctival pallor or scleral icterus, mucous membranes moist, trachea midline. No drooling or trismus noted. No meningeal signs. No hot potato voice noted. Lungs: Clear to auscultation bilaterally. No wheezes, rales, or rhonchi. Chest nontender. Normal work of breathing, no accessory muscles used. Heart: S1S2, regular rate and rhythm without overt murmur, gallops, or rubs. No JVD. No peripheral edema Abdomen: Soft, nondistended, nontender. Normoactive bowel sounds. Negative for masses or costovertebral tenderness. C-spine/Back: No pinpoint vertebral tenderness upon palpation. No crepitus, step-offs or obvious deformities. Paraspinous muscular tenderness to the lumbar region bilaterally. Patient is ambulatory into the emergency room without difficulty or deficit. Able to rock back on heels and walk on toes. Denies any urinary or fecal incontinence. Denies any numbness, tingling or saddle paresthesia. No concerns of serious infection, fracture or cord compression, or cauda equina syndrome. Deep tendon reflexes brisk bilaterally. Skin: Intact, warm, dry. No lesions or rashes noted. Hematologic: No petechiae or purpra. Mucosa appropriate color and normal nail bed color and refill. Extremities: Ambulatory without difficulty or deficits. She moves all extremities per self without difficulty or deficits, negative for cords or calf pain. Neurovascular unremarkable. Neuro: Awake, alert, oriented. Cranial nerves II through XII unremarkable. Cerebellum unremarkable. Motor and sensory unremarkable throughout. Exam nonfocal. Psychiatric: Mood and affect are appropriate. Normal thought process. Answering questions appropriately. Notes: *This patient was seen and evaluated during the 2019 SARS-CoV-2 novel co ronavirus pandemic period. Community viral transmission is ongoing at time of this encounter and the emergency department is operating under pandemic response procedures. Patient is a 24-year-old female who presents to the emergency room with complaints of lumbar back pain. She states earlier today she fell into a hole resulting in the discomfort. She does not have any neurological deficits. She is agreeable to imaging. Negative I have talked with the patient about today's findings, in addition to providing specific details for plan of care. Reassessment at the time of disposition demonstrates that the patient is in no acute distress. The patient is stable for discharge, counseling was provided and we discussed in great detail signs and symptoms that would prompt them to return to the Emergency Department. Medication, follow up and supportive care measures were reviewed and discussed. Voices understanding and is agreeable to plan of care. Denies any further questions or concerns at this time. Diagnostics: UA, hCG U, lumbar x-ray Therapeutics: Norflex IM, Toradol IM, Macrobid Prescription: Macrobid Impression: UTI Lumbago Plan: 1. You were evaluated today on an emergent basis. The x-ray shows no acute findings. Your urine does show that you have a bladder infection. Please increase your water intake the antibiotic as prescribed. The medication you re ceived today does cause drowsiness, so do not drive for the remaining day 2. When resting please lay on a flat firm surface. Limit your immobility to prevent muscle stiffness. Get up to ambulate/move around/gentle stretching multiple times throughout the day. May alternate heat and ice to the painful areas 3. Take the prescribed Flexeril and Ibuprofen as directed. Flexeril as a muscle relaxant, this medication may cause drowsiness a do not take it will driving her needing to be functioning outside of the house. 4. Please follow-up with your primary care provider as we discussed. If your symptoms should worsen, new symptoms develop or any of the signs and symptoms we discussed should arise please return to the emergency room or call 911 (if needed). Definitive disposition and diagnosis as appropriate pending reevaluation and review of above. lower back Pain Score (Numeric/FACES): 7 - Related Data Allergies Allergy/AdvReac Type Severity Reaction Status Date / Time acetaminophen [From Tylenol] Allergy Hives Verified 08/01/20 16:34 amoxicillin Allergy Hives Verified 08/01/20 16:34 Home Meds: Home Meds Cyclobenzaprine [Flexeril] 10 mg PO TID PRN #21 tab 08/01/20 [Rx] Nitrofurantoin Monohyd/M-Cryst [Macrobid 100 mg Capsule] 100 mg PO BID 5 Days #10 capsule 08/01/20 [Rx] Past Medical History HEENT History: Reports: None Cardiovascular History: Reports: None Respiratory History: Reports: None Gastrointestinal History: Reports: GERD Genitourinary History: Reports: None 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: Musculoskeletal History: Reports: None Neurological History: Reports: None Psychiatric History: Reports: Anxiety Endocrine/Metabolic History: Reports: Obesity/BMI 30+ Insulin Pump Model and Gliding Pilot Instructor: None Hematologic History: Reports: Anemia Immunologic History: Reports: None Oncologic (Cancer) History: Reports: None Dermatologic History: Reports: None - Infectious Disease History Infectious Disease History: Reports: Shingles - Past Surgical History Head Surgeries/Procedures: Reports: None GI Surgical History: Reports: Appendectomy Other GI Surgeries/Procedures: 2011 Social & Family History - Family History Family Medical History: No Pertinent Family History Oncologic: Reports: Ovarian, Renal - Caffeine Use Caffeine Use: Reports: None - Recreational Drug Use Recreational Drug Use: No ED ROS GENERAL - Review of Systems Review Of Systems: Comprehensive ROS is negative, except as noted in HPI. ED EXAM,LOWER BACK PAIN/INJURY - Physical Exam Exam: See Below (See dictation) Course - Vital Signs Last Recorded V/S: Last Vital Signs Temp 97.4 F 08/01/20 16:32 Pulse 84 08/01/20 16:32 Resp 16 08/01/20 16:32 BP 151/89 H 08/01/20 16:32 Pulse Ox 99 08/01/20 16:32 - Orders/Labs/Meds Labs: Laboratory Tests 08/01/20 08/01/20 Range/Units 16:35 16:35 Urine Color YELLOW Urine Appearance CLOUDY Urine pH 7.5 (5.0-8.0) Ur Specific [place] 1.020 (1.001-1.035) Urine Protein NEGATIVE (NEGATIVE) mg/dL Urine Glucose (UA) NEGATIVE (NEGATIVE) mg/dL Urine Ketones NEGATIVE (NEGATIVE) mg/dL Urine Occult Blood TRACE-INTACT H (NEGATIVE) Urine Nitrite NEGATIVE (NEGATIVE) Urine Bilirubin NEGATIVE (NEGATIVE) Urine Urobilinogen 2.0 H (<2.0) EU/dL Ur Leukocyte Esterase NEGATIVE (NEGATIVE) Urine RBC 5-8 (0-2/HPF) Urine WBC 2-5 (0-5/HPF) Ur Epithelial Cells MODERATE (NONE-FEW) Amorphous Sediment HEAVY (NEGATIVE) Urine Bacteria 2+ H (NEGATIVE) Urine Mucus LIGHT (NONE-MOD) Urine HCG, Qual NEGATIVE (NEGATIVE) Meds: Medications Discontinued Medications Generic Name Dose Route Start Last Admin Trade Name [place] PRN Reason Stop Dose Admin Ketorolac Tromethamine 60 mg 08/01/20 16:46 08/01/20 17:06 Ketorolac 60 Mg/2 Ml Sdv IM 08/01/20 16:47 60 mg ONETIME ONE Administration Nitrofurantoin Macrocrystals 100 mg 08/01/20 16:57 08/01/20 17:06 Nitrofurantoin Monohydrate/Macrocrystalline 100 Mg Cap PO 08/01/20 16:58 100 mg ONETIME ONE Administration Orphenadrine Citrate 60 mg 08/01/20 16:46 08/01/20 17:06 Orphenadrine 60 Mg/2 Ml Inj IM 08/01/20 16:47 60 mg ONETIME ONE Administration Departure - Departure Time of Disposition: 18:24 Disposition: Home, Self-Care 01 Clinical Impression: UTI (urinary tract infection) Qualifiers: Urinary tract infection type: acute cystitis Hematuria presence: without hematuria Qualified Code(s): N30.00 - Acute cystitis without hematuria Lumbago Qualifiers: Chronicity: acute Back pain laterality: bilateral Sciatica presence: without sciatica Qualified Code(s): M54.5 - Low back pain - Discharge Information Prescriptions: Cyclobenzaprine [Flexeril] 10 mg PO TID PRN #21 tab PRN Reason: Muscle Spasm Nitrofurantoin Monohyd/M-Cryst [Macrobid 100 mg Capsule] 100 mg PO BID 5 Days #10 capsule Instructions: Muscle Strain, [id number] Referrals: Jaya Carter MD [Primary Care Provider] - Forms: ED Department Discharge Additional Instructions: The following information is given to patients seen in the emergency department who are being discharged to home. This information is to outline your options for follow-up care. We provide all patients seen in our emergency department with a follow-up referral. The need for follow-up, as well as the timing and circumstances, are variable depending upon the specifics of your emergency department visit. If you don't have a primary care physician on staff, we will provide you with a referral. We always advise you to contact your personal physician following an emergency department visit to inform them of the circumstance of the visit and for follow-up with them and/or the need for any referrals to a consulting specialist. The emergency department will also refer you to a specialist when appropriate. This referral assures that you have the opportunity for follow-up care with a specialist. All of these measure are taken in an effort to provide you with optimal care, which includes your follow-up. Under all circumstances we always encourage you to contact your private physician who remains a resource for coordinating your care. When calling for follow-up care, please make the office aware that this follow-up is from your recent emergency room visit. If for any reason you are refused follow-up, please contact the [facility] Emergency Department at and asked to speak to the emergency department charge nurse. [facility] Primary Care [address] [place] [address] [place] [address] [facility] [address] [place] [address] Thank you for choosing the [facility] emergency department in [place] for your medical needs today. It was a pleasure caring for you. Today you were seen in the emergency department for back pain. 1. You were evaluated today on an emergent basis. The x-ray shows no acute findings. Your urine does show that you have a bladder infection. Please increase your water intake the antibiotic as prescribed. The medication you received today does cause drowsiness, so do not drive for the remaining day 2. When resting please lay on a flat firm surface. Limit your immobility to prevent muscle stiffness. Get up to ambulate/move around/gentle stretching multiple times throughout the day. May alternate heat and ice to the painful areas 3. Take the prescribed Flexeril and Ibuprofen as directed. Flexeril as a muscle relaxant, this medication may cause drowsiness a do not take it will driving her needing to be functioning outside of the house. 4. Please follow-up with your primary care provider as we discussed. If your symptoms should worsen, new symptoms develop or any of the signs and symptoms we discussed should arise please return to the emergency room or call 911 (if needed). Sepsis Event Note (ED) - Evaluation Sepsis Screening Result: No Definite Risk - Focused Exam Vital Signs: Vital Signs Temp Pulse Resp BP Pulse Ox 08/01/20 16:32 97.4 F 84 16 151/89 H 99
[2020-08-01] MEDS ORDERED: Nitrofurantoin Monohydrate/Macrocrystalline 100 MG Cap PO ONE (16:57)
--- NOTE | 2020-08-01 18:15 | CR ---
INDICATION: Lumbar spine injury from fall in hole TECHNIQUE: Lumbar spine radiograph 3 views COMPARISON: None FINDINGS: Bone: No acute fractures or aggressive bone lesions are identified. Alignment is normal. Disc: The disc spaces are unremarkable in appearance. The facet joints are unremarkable. Soft tissue: IUD noted in the midline pelvis. No radiopaque foreign bodies are seen. IMPRESSION: 1. No acute osseous injuries or abnormalities are noted. Dictated by: Piter Mayer MD @ 08/01/2020 18:15:28 (Electronically Signed)
== END 2020-08-01 18:33 | disposition home or self-care (01) ==
LOC: MW.ED 16:23
DX: N30.00 Acute cystitis without hematuria (principal); E66.9 Obesity, unspecified; Z68.30 Body mass index [BMI] 30.0-30.9, adult; Z88.0 Allergy status to penicillin; Z88.8 Allergy status to other drugs, medicaments and biological substances
CPT/HCPCS: 72100; 81001; 81025; 96372; 99283; A9270; J1885; J2360; 99284

== ENCOUNTER 2023-10-06 06:45 | Emergency (ER) | payer BC, OTHER ==
[2023-10-06 08:15] LABS: BASOPHILS ABSOLUTE AUTO 0.04 K/uL (0.00-0.20); BASOPHILS PERCENT AUTO 0.3 % (0.0-1.0); EOSINOPHILS ABSOLUTE AUTO 0.03 K/uL (0.00-0.45); EOSINOPHILS PERCENT AUTO 0.2 % (0.0-6.0); HEMOGLOBIN 13.6 g/dL (12.0-16.0); IMMATURE GRAN ABSOLUTE AUTO 0.03 K/uL (0.00-0.05); IMMATURE GRAN PERCENT AUTO 0.2 % (0.0-0.4); LYMPHOCYTES ABSOLUTE AUTO 4.07 K/uL (1.00-4.80); LYMPHOCYTES PERCENT AUTO 31.7 % (24.0-44.0); MEAN CORPUSCULAR HEMOGLOBIN 29.1 pg (28.0-32.0); MEAN CORPUSCULAR VOLUME 85.7 fL (83.0-99.0); MEAN PLATELET VOLUME 10.5 fL (9.4-12.3); MONOCYTES ABSOLUTE AUTO 0.58 K/uL (0.00-0.80); MONOCYTES PERCENT AUTO 4.5 % (0.0-8.0); NEUTROPHILS PERCENT AUTO 63.1 % (41.0-71.0); PLATELET COUNT,PLT 344 K/uL (150-400); RED BLOOD CELL COUNT 4.67 M/uL (4.10-5.30); WHITE BLOOD CELL COUNT,WBC 12.85 K/uL (3.9-11.3)
[2023-10-06 09:39] VITALS: BP 151/91; PULSE 88
== END 2023-10-06 09:40 | disposition home or self-care (01) ==
LOC: MW.ED 06:45
DX: O20.9 Hemorrhage in early pregnancy, unspecified (principal); Z3A.00 Weeks of gestation of pregnancy not specified; Z88.6 Allergy status to analgesic agent; Z88.0 Allergy status to penicillin; Z75.8 Other problems related to medical facilities and other health care
CPT/HCPCS: 36415; 81025; 84702; 85025; 86900; 86901; 99283; 99284